=== PATIENT | male | born 1930 | race Caucasian/White ===

== ENCOUNTER 2016-07-15 11:00 | Day surgery (SDC) | payer OTHER ==
[~2016-07-15] VITALS: Ht 175.3 cm; Wt 158.7 kg
[2016-07-15] VITALS (11 sets, daily range): BP systolic 108–174; BP diastolic 57–108; PULSE 71–80; RESP 18; TEMP 97.7–98.8; O2SAT 95–100
[~2016-07-15 11:00] MED LIST: 1-ME1LIQ PO; ASPI325T PO; B COTAB3 PO; BP MED; CARV6.252 PO; CLON.1 PO; FURO1TAB93 PO; GLUC250C5 PO; LISI-363 PO; LORTA5 PO; MAXIVISION PO; MEDR4PAK3 PO; METF1000 PO; NOVO7030P2 SQ; SIMV20TA PO; TERA5CAP3 PO; WARF-20 PO; WARF1TAB PO; [UNRECOGNIZED DRUG - CODE] PO
[2016-07-15] MEDS ORDERED: LACTATED RINGER'S 1000 ML IV SCH (11:30)
[2016-07-15] MEDS ORDERED: LORazepam 1 MG TAB SL SCH (11:30)
[2016-07-15] MEDS ORDERED: METOPROLOL TARTRATE 25 MG TAB PO PRN (11:30)
[2016-07-15] MEDS ORDERED: INSULIN HUMAN REGULAR 1,000 UNITS/10 ML VIAL SQ PRN (11:30)
[2016-07-15] MEDS ORDERED: SODIUM CHLORID 0.9% 500 ML IV SCH (11:30)
[2016-07-15] MEDS ORDERED: SODIUM CHLORID 0.9% 500 ML INJ 500 ML IV SCH (11:30)
[2016-07-15] MEDS ORDERED: ZOCO20TA PO (12:21)
[2016-07-15] MEDS ORDERED: MAGN400T2 PO (12:21)
[2016-07-15] MEDS ORDERED: NORC5TAB PO (12:21)
[2016-07-15] MEDS ORDERED: AMOX500C PO (12:21)
[2016-07-15] MEDS ORDERED: CARV25TA PO (12:21)
[2016-07-15] MEDS ORDERED: BENGCRE (12:21)
[2016-07-15] MEDS ORDERED: METF1000 PO (12:21)
[2016-07-15] MEDS ORDERED: TAMS0.4C4 PO (12:21)
[2016-07-15] MEDS ORDERED: SPIR25 PO (12:21)
[2016-07-15] MEDS ORDERED: METO5TAB3 PO (12:21)
[2016-07-15] MEDS ORDERED: WARF4TAB51 PO ×2 (12:21)
[2016-07-15] MEDS ORDERED: NOVO7030P2 SQ (12:21)
[2016-07-15] MEDS ORDERED: MULT1TAB84 PO (12:21)
[2016-07-15] MEDS ORDERED: BENZ1CAP8 PO (12:21)
[2016-07-15] MEDS ORDERED: ALLO300T2 PO (12:21)
[2016-07-15] MEDS ORDERED: BUME1TAB PO (12:21)
[2016-07-15] MEDS ORDERED: SACU1TAB PO (12:21)
[2016-07-15] MEDS ORDERED: OMEGCAP PO (12:21)
[2016-07-15] MEDS ORDERED: [UNRECOGNIZED DRUG - CODE] PO (12:21)
[2016-07-15 12:22] LABS: AUTOMATED NEUTROPHIL # 5.5 TH/MM3 (1.8-7.7); BASOPHIL # 0.1 TH/MM3 (0-0.2); BASOPHIL % 0.6 % (0.0-2.0); EOSINOPHIL # 0.1 TH/MM3 (0-0.4); EOSINOPHIL % 1.4 % (0.0-4.0); HEMATOCRIT 44.8 % (39.0-51.0); HEMO FLAGS DIFF FINAL; LYMPH % 27.5 % (9.0-44.0); LYMPHOCYTE # 2.4 TH/MM3 (1.0-4.8); MEAN CELL VOLUME 84.3 FL (80.0-100.0); MEAN CORPUSCULAR HEMOGLOBIN 28.2 PG (27.0-34.0); MEAN CORPUSCULAR HGB CONC 33.5 % (32.0-36.0); MONO % 8.2 % (0.0-8.0); NEUT % 62.3 % (16.0-70.0); PLATELET COUNT 135 TH/MM3 (150-450); RED BLOOD COUNT 5.31 MIL/MM3 (4.50-5.90); RED CELL DISTRIBUTION WIDTH 18.8 % (11.6-17.2); WHITE BLOOD COUNT 8.9 TH/MM3 (4.0-11.0)
[2016-07-15 12:26] LABS: APTT (PATIENT) 35.7 SEC (24.3-30.1)
[2016-07-15 12:51] LABS: BICARBONATE 25.9 MEQ/L (21.0-32.0); POTASSIUM 4.3 MEQ/L (3.5-5.1)
[2016-07-15 13:02] LABS: INTERNATIONAL NORMALIZED RATIO 2.3 RATIO; PROTHROMBIN TIME - PATIENT 26.5 SEC (9.8-11.6)
[2016-07-15] MEDS ORDERED: ISOPROTERENOL HCL 1 MG/5 ML AMP ONE (13:05)
[2016-07-15] MEDS ORDERED: ceFAZolin INJ 1,000 MG VIAL ONE (13:06)
[2016-07-15] MEDS ORDERED: VANCOMYCIN HCL 1000 MG VIAL ONE (13:06)
[2016-07-15] MEDS ORDERED: LIDOCAINE HCL 2% 50 ML VIAL ONE (14:10)
[2016-07-15] MEDS ORDERED: VANCOMYCIN 500 MG VIAL ONE (14:10)
[2016-07-15] MEDS ORDERED: ePHEDrine/NS 25 MG/5 ML SYR IV ONE (15:24)
[2016-07-15] MEDS ORDERED: PROPOFOL 200 MG/20 ML AMP IV ONE (15:24)
[2016-07-15] MEDS ORDERED: SODIUM CHLOR 0.9% IV ONE (15:24)
[2016-07-15] MEDS ORDERED: SODIUM CHLORIDE 0.9% FLUSH 5 ML FLUSH IVF PRN (15:45)
[2016-07-15] MEDS ORDERED: LIDOCAINE HCL 1% 50 ML VIAL INFIL PRN (15:45)
[2016-07-15] MEDS ORDERED: ATROPINE SULFATE 1 MG/ML VIAL IV PRN (15:45)
[2016-07-15] MEDS ORDERED: LORazepam 2 MG/ML VIAL IV PRN (15:45)
[2016-07-15] MEDS ORDERED: oxyCODONE/ACETAMINOPHEN 5 MG/325 MG TAB PO PRN (15:45)
[2016-07-15] MEDS ORDERED: SODIUM CHLOR 0.9% 250 ML INJ 250 ML IV PRN (15:45)
[2016-07-15] MEDS ORDERED: METOCLOPRAMIDE HCL 10 MG/2 ML VIAL IV PRN (15:45)
[2016-07-15] MEDS ORDERED: ONDANSETRON HCL 4 MG/2 ML VIAL IV PRN ×2 (15:45)
[2016-07-15] MEDS ORDERED: BACITRACIN OINT 0.9 GM PKT TOP ONE (15:45)
[2016-07-15] MEDS ORDERED: TEMAZEPAM 15 MG CAP PO PRN (15:45)
[2016-07-15] MEDS ORDERED: BENZONATATE 100 MG CAP PO PRN (16:00)
[2016-07-15] MEDS: metFORMIN HCL 500 MG TAB PO SCH (17:25)
[2016-07-15] MEDS: MAGNESIUM OXIDE 400 MG TAB PO SCH (17:25)
--- NOTE | 2016-07-15 20:27 | PD.CARD ---
BIV/ICD Implantation PROCEDURE DATE: Jul 15, 2016 NYHA Classification: Class III (Moderate) Prevention: Primary BIV/ICD IMPLANT PROCEDURE Biventricular pacer defibrillator implantation. INDICATION FOR PROCEDURE Mr. Rosas is a 85-year-old male with congestive heart failure, cardiomyopathy, on optimal medical management for years, atrial fibrillation, EF 30%, SP AV node ablation, wide QRS at baseline who undergo biventricular pacer defibrillator implantation. Post electrophysiology study the patient was kept on the table for device implantation. The risks, the nature and the benefit of the procedure were clearly stated to him. The risks include pneumothorax, cardiac perforation, stroke and even . He understood and agreed to proceed. PROCEDURE As written informed consent was obtained prior to electrophysiology study, the patient was kept on the table where he was prepped and draped in the usual sterile fashion. Conscious sedation was initiated and maintained throughout the procedure by the anesthesiologist. Once sedation was verified, the left infraclavicular area was anesthetized with 2% Xylocaine. Using modified Seldinger technique, the left subclavian vein was cannulated on two occasions and two guidewire were advanced. Then, using an 11 blade scalpel, a 3 cm incision was made over the existing generator. The incision was taken down to the fascial layer using Bovie cautery and blunt dissection. Into the inferomedial direction, a device pocket was dissected. Then the wires were dissected into pocket. A 2-0 Vicryl suture was placed around the wires to prevent back-bleeding. At this point, over the lateral wire, a 8-Portuguese dilator and introducer were advanced. As the dilator and wire were removed, an active fixation right ventricular pacing sensing defibrillatory lead was advanced. After adequate pacing and sensing thresholds were obtained, the lead was secured in the pocket using # 2 Ethibond suture. Then, over the remaining wire, a 9-Portuguese dilator and introducer were advanced. As the dilator and wire were removed, a CS cannulation sheath was advanced. Through the sheath a quadripolar steerable catheter was advanced. After multiple manipulations the coronary sinus was cannulated, and CS venography showed an adequate lateral branch. Using a Prowater wire the lateral branch was cannulated and the lead was advanced over the wire. After adequate pacing and sensing thresholds were obtained, the peel-away introducer was removed and the cutter introducer was removed, and the lead was secured in the pocket using # 2 Ethibond suture. At that point, the pocket was copiously irrigated with antibiotic solution. The leads were connected to the generator and placed into pocket. Because of the patient's general condition and was so unstable during the procedure, I decided not to proceed with device testing. I did proceed with wound closure. The deep fascial layer was approximated using 2-0 Vicryl suture in a continuous fashion. The subcutaneous layer was approximated with 2-0 Vicryl suture in a continuous fashion. The subcuticular layer was approximated with 2-0 Vicryl suture in a continuous fashion. Dermabond adhesive was applied to the wound followed by a sterile pressure dressing. This was a very complex case. The patient was unstable during the procedure, but no complications reported. Blood loss was minimal. IMPLANTED HARDWARE The implanted biventricular pacer defibrillator is a [employer]ronik model 221801, serial number [id number]. The right ventricle pacing sensing defibrillatory is a Biotronik model 458359, serial number [id number]. The left ventricular pacing sensing lead is a [employer] model 4398-88, serial number [id number]. THRESHOLDS The right ventricle pacing threshold in the bipolar mode was 0.8 volts at 0.5 milliseconds, lead impedance 680 ohms. The left ventricular pacing threshold in the bipolar mode was 1.2 volts at 0.5 milliseconds, lead impedance 520 ohms, R wave could not be measured. SETTINGS The device was set in a VVIR 80, upper limit 110 beats per minute. LV first by 40 milliseconds. The defibrillatory portion was set for two zones. One zone for ventricular tachycardia between 160 and 240 beats per minute on the monitor ventricular tachycardia. The initial therapy consisted of one burst of ATP, one RAMP, 81%, 10 pulses, 10 millisecond decremental followed by 20, 30 and 40 joules defibrillatory shock. The second zone is for ventricle fibrillation above 240, the first therapy at 30 and all subsequent shocks at 40 joules defibrillatory shock. CONCLUSIONS Successful biventricular pacer defibrillator implantation, that was a complex case. COMMENT AND RECOMMENDATION The patient will be transferred to the telemetry unit. He will be observed and when stable can be discharged home. Elmer Torres MD Jul 15, 2016 20:27
[2016-07-15] MEDS ORDERED: AMOXICILLIN (TRIHYDRATE) 500 MG CAP PO SCH (21:00)
[2016-07-15] MEDS ORDERED: PRAVASTATIN SOD 40 MG TAB PO SCH (21:00)
[2016-07-15] MEDS: SODIUM CHLORIDE 0.9% FLUSH 5 ML FLUSH IVF SCH (21:00)
[2016-07-15] MEDS ORDERED: NON-FORMULARY DRUG (Simvastatin (Zocor) 20 MG) PO SCH (21:00)
[2016-07-15] MEDS ORDERED: TAMSULOSIN HCL 0.4 MG CAP PO SCH (21:00)
[2016-07-15] MEDS: BUMETANIDE 1 MG TAB PO SCH (21:02)
[2016-07-15] MEDS: ceFAZolin 2 GM PREMIX 50 ML IV SCH (21:04)
[2016-07-15] MEDS: CARVEDILOL 12.5 MG TAB PO SCH (21:04)
[2016-07-15] MEDS: oxyCODONE/ACETAMINOPHEN 5 MG/325 MG TAB PO PRN (21:05)
[2016-07-15] MEDS: SACUBITRIL/VALSARTAN 24 MG-26 MG TAB PO SCH (21:51)
[2016-07-16] VITALS (16 sets, daily range): BP systolic 134–171; BP diastolic 77–94; PULSE 78–80; RESP 18; TEMP 97.8–98.3; O2SAT 93–98
[2016-07-16] MEDS: oxyCODONE/ACETAMINOPHEN 5 MG/325 MG TAB PO PRN (03:54)
[2016-07-16] MEDS: ceFAZolin 2 GM PREMIX 50 ML IV SCH (05:29)
[2016-07-16 07:04] LABS: APTT (PATIENT) 36.3 SEC (24.3-30.1); INTERNATIONAL NORMALIZED RATIO 2.5 RATIO; PROTHROMBIN TIME - PATIENT 28.3 SEC (9.8-11.6)
[2016-07-16] MEDS ORDERED: CEPH-460 PO (08:01)
--- NOTE | 2016-07-16 08:08 | PD.CARD.PN ---
Subjective Subjective Remarks Feels ok. Objective Medications Current Medications Medications (Trade) Dose Ordered Sig/Gerardo Route Start Time Stop Time Status Last Admin Sodium Chloride 500 ml @ 30 mls/hr [id number] IV 07/15/16 11:30 (Ancef 2 Gm Premix) 50 ml @ 100 mls/hr Q8H IV 07/15/16 21:00 07/16/16 13:29 07/16/16 05:29 (Restoril) 15 mg HS PRN PO 07/15/16 15:45 (NS Flush) 2 ml BID IVF 07/15/16 21:00 07/15/16 21:00 (NS Flush) 2 ml UNSCH PRN IVF 07/15/16 15:45 (Percocet 5-325 Mg) 1 tab Q4H PRN PO 07/15/16 15:45 07/16/16 03:54 (Percocet 5-325 Mg) 2 tab Q4H PRN PO 07/15/16 15:45 (Ativan Inj) 0.5 mg UNSCH PRN IV 07/15/16 15:45 07/16/16 15:44 Atropine Sulfate 0.5 mg 0.5 mg UNSCH PRN IV 07/15/16 15:45 (NS 250 ml Inj) 250 ml @ 500 mls/hr ONCE PRN IV 07/15/16 15:45 07/16/16 15:44 (Reglan Inj) 10 mg Q4H PRN IV 07/15/16 15:45 (Zofran Inj) 4 mg Q4H PRN IV 07/15/16 15:45 (Xylocaine 1% Inj (50 ml)) 10 ml UNSCH PRN INFIL 07/15/16 15:45 07/16/16 15:44 (Zyloprim) 300 mg DAILY PO 07/16/16 09:00 (Trimox) 2,000 mg BID PO 07/15/16 21:00 UNV (Tessalon) 100 mg Q6H PRN PO 07/15/16 16:00 (Bumetanide) 1 mg BID PO 07/15/16 21:00 07/15/16 21:02 (Coreg) 25 mg BID PO 07/15/16 21:00 07/15/16 21:04 (NovoLIN 70/30 INJ) 55 units DAILY SQ 07/16/16 09:00 (Mag-Ox) 400 mg TID PO 07/15/16 18:00 07/15/16 17:25 (Glucophage) 1,000 mg BIDPC PO 07/15/16 18:00 07/15/16 17:25 (Zaroxolyn) 5 mg DAILY PO 07/16/16 09:00 (Theragran M Tab) 1 tab DAILY PO 07/16/16 09:00 (Entresto 24-26 Mg) 1 tab BID PO 07/15/16 21:00 07/15/16 21:51 (Aldactone) 25 mg DAILY PO 07/16/16 09:00 (Flomax) 0.4 mg HS PO 07/15/16 21:00 07/15/16 21:02 (Coumadin) 8 mg SuTuTh@16 PO 07/18/16 16:00 (Coumadin) 10 mg MoWeFrSa@16 PO 07/16/16 16:00 (Pravachol) 40 mg HS PO 07/15/16 21:00 07/15/16 21:02 (Coumadin Booklet) 1 ONCE ONCE XX 07/16/16 16:00 07/16/16 16:01 Vital Signs / I&O Vital Signs Date Time Temp Pulse Resp B/P Pulse Ox O2 Delivery O2 Flow Rate FiO2 07/16/16 06:00 80 07/16/16 05:00 80 07/16/16 04:00 80 07/16/16 03:57 97.8 80 154/83 98 07/16/16 03:00 80 07/16/16 02:00 80 07/16/16 01:00 80 07/16/16 00:02 97.8 78 134/77 96 07/16/16 00:00 80 07/15/16 23:00 80 07/15/16 22:00 80 07/15/16 21:00 80 07/15/16 20:00 80 07/15/16 19:00 97.7 80 108/108 99 07/15/16 19:00 80 07/15/16 17:35 98.8 80 18 134/78 100 07/15/16 17:00 79 131/75 99 07/15/16 16:45 71 114/81 99 07/15/16 16:30 80 18 174/57 96 07/15/16 16:00 78 18 146/64 99 07/15/16 11:48 98.4 72 18 138/85 95 I/O 07/15/16 07/15/16 07/15/16 07/16/16 07/16/16 07/16/16 07:00 15:00 23:00 07:00 15:00 23:00 Intake Total 480 ml Output Total 650 ml Balance -170 ml Intake Oral 480 ml Output Urine Total 650 ml # Voids 1 Physical Exam GENERAL: Well-nourished, well-developed patient. SKIN: Warm and dry. LCW well approximated without hematoma or bleeding. HEAD: Normocephalic. EYES: No scleral icterus. No injection or drainage. NECK: Supple, trachea midline. No JVD or lymphadenopathy. CARDIOVASCULAR: Regular rate and rhythm without murmurs, gallops, or rubs. RESPIRATORY: Breath sounds equal bilaterally. No accessory muscle use. GASTROINTESTINAL: Abdomen soft, non-tender, nondistended. EXTREMITIES: No cyanosis, 1+ edema. NEUROLOGICAL: Awake, alert, and oriented x 3. Non-focal. Laboratory Laboratory Tests Test 07/15/16 07/16/16 11:30 06:20 White Blood Count 8.9 TH/MM3 Red Blood Count 5.31 MIL/MM3 Hemoglobin 15.0 GM/DL Hematocrit 44.8 % Mean Corpuscular Volume 84.3 FL Mean Corpuscular Hemoglobin 28.2 PG Mean Corpuscular Hemoglobin 33.5 % Concent Red Cell Distribution Width 18.8 % Platelet Count 135 TH/MM3 Mean Platelet Volume 8.2 FL Neutrophils (%) (Auto) 62.3 % Lymphocytes (%) (Auto) 27.5 % Monocytes (%) (Auto) 8.2 % Eosinophils (%) (Auto) 1.4 % Basophils (%) (Auto) 0.6 % Neutrophils # (Auto) 5.5 TH/MM3 Lymphocytes # (Auto) 2.4 TH/MM3 Monocytes # (Auto) 0.7 TH/MM3 Eosinophils # (Auto) 0.1 TH/MM3 Basophils # (Auto) 0.1 TH/MM3 CBC Comment DIFF FINAL Differential Comment Prothrombin Time 26.5 SEC 28.3 SEC Prothromb Time International 2.3 RATIO 2.5 RATIO Ratio Activated Partial 35.7 SEC 36.3 SEC Thromboplast Time Sodium Level 136 MEQ/L Potassium Level 4.3 MEQ/L Chloride Level 102 MEQ/L Carbon Dioxide Level 25.9 MEQ/L Anion Gap 8 MEQ/L Blood Urea Nitrogen 32 MG/DL Creatinine 1.31 MG/DL Estimat Glomerular Filtration 52 ML/MIN Rate Random Glucose 111 MG/DL Calcium Level 9.2 MG/DL Blood Type A POSITIVE Antibody Screen NEGATIVE Blood Bank Comment Assessment and Plan Problem List: (1) Cardiomyopathy Assessment and Plan: No SOB this a.m. Stable s/p upgrade to BiVICD. (2) Biventricular implantable cardioverter-defibrillator (ICD) in situ Assessment and Plan: Pacing appropriately, interrogation good, CXR pending. If CXR ok, he can be DC'D home and f/u with Dr. Torres in 3 weeks. Assessment and Plan D/W pt., , RN, Dr. Torres. Problem Qualifiers (1) Cardiomyopathy: Qualified Code: I42.9 - Cardiomyopathy, unspecified type Ingris Burger Jul 16, 2016 08:08
[2016-07-16] MEDS ORDERED: SPIRONOLACTONE 25 MG TAB PO SCH (09:00)
[2016-07-16] MEDS: SODIUM CHLORIDE 0.9% FLUSH 5 ML FLUSH IVF SCH (09:00)
[2016-07-16] MEDS ORDERED: METOLAZONE 5 MG TAB PO SCH (09:00)
[2016-07-16] MEDS ORDERED: ALLOPURINOL 300 MG TAB PO SCH (09:00)
[2016-07-16] MEDS ORDERED: INSULIN HUMAN NPH/R 70/30 1,000 UNITS/10 ML VIAL SQ SCH (09:00)
[2016-07-16] MEDS ORDERED: MULTIVITAMINS/MINERALS THERAPEUTIC TAB PO SCH (09:00)
[2016-07-16] MEDS: BUMETANIDE 1 MG TAB PO SCH (10:43)
[2016-07-16] MEDS: CARVEDILOL 12.5 MG TAB PO SCH (10:44)
[2016-07-16] MEDS: metFORMIN HCL 500 MG TAB PO SCH (10:44)
[2016-07-16] MEDS: MAGNESIUM OXIDE 400 MG TAB PO SCH (10:44)
[2016-07-16] MEDS: SACUBITRIL/VALSARTAN 24 MG-26 MG TAB PO SCH (10:44)
--- NOTE | 2016-07-16 10:50 | RADRPT ---
EXAM DATE/TIME: 07/16/2016 10:12 [place] COMPARISON: CHEST PA & LAT, May 14, 2013, 20:50. INDICATIONS: Post pacemaker yesterday. MEDICAL HISTORY: None. SURGICAL HISTORY: Pacemaker. ENCOUNTER: Initial ACUITY: 2 days PAIN SCORE: 0/10 LOCATION: Bilateral chest FINDINGS: The heart is enlarged. Minimal pulmonary vascular congestion is noted. a left subclavian dual lead pacemaker has its tip in the right heart. There is no pneumothorax. No focal alveolar consolidation is noted. CONCLUSION: 1. Cardiomegaly. 2. Minimal central pulmonary vascular congestion bilaterally. 3. Left subclavian dual lead pacemaker has its tip in good position in the right heart. There is no pneumothorax. Nando Dyer MD on July 16, 2016 at 10:34 Board Certified Radiologist. This report was verified electronically.
[2016-07-16] MEDS ORDERED: WARFARIN SOD 10 MG TAB PO SCH (16:00)
--- NOTE | 2016-07-16 16:49 | EKG ---
Date Performed: 07/16/2016 Time Performed: 03:46:06 PTAGE: 85 years EKG: Ventricular pacing Pacemaker rhythm - no further analysis When compared to previous tracing , patient is now in a Ventricular paced rhythm. Abnormal ECG PREVIOUS TRACING : 07/15/2016 12.33 DOCTOR: Asher Kim Interpretating Date/Time 07/16/2016 16:48:52
--- NOTE | 2016-07-16 16:49 | EKG ---
Date Performed: 07/15/2016 Time Performed: 12:33:28 PTAGE: 85 years EKG: Atrial fibrillation. Left axis deviation IV conduction defect Possible lateral infarct - ag e undetermined Poor R wave progression - cannot rule out anteroseptal infarct When compared to previo us tracing, no significant change. Abnormal ECG PREVIOUS TRACING : 05/14/2013 20.19 DOCTOR: Asher Kim Interpretating Date/Time 07/16/2016 16:48:01
[2016-07-18] MEDS ORDERED: WARFARIN SOD 4 MG TAB PO SCH (16:00)
== END 2016-07-16 12:48 | disposition home or self-care (01) ==
LOC: HDOC 11:00 → HDIC 11:00 → HCIS 16:19 → HDOC 07-16 12:48
PROVIDERS: ATTEND Internal Medicine Interventional Cardiology
DX: I48.2 Chronic atrial fibrillation (principal); I13.0 Hypertensive heart and chronic kidney disease with heart failure and stage 1 through stage 4 chronic kidney disease, or unspecified chronic kidney disease; I50.9 Heart failure, unspecified; E11.22 Type 2 diabetes mellitus with diabetic chronic kidney disease; N18.2 Chronic kidney disease, stage 2 (mild); I42.0 Dilated cardiomyopathy; I08.3 Combined rheumatic disorders of mitral, aortic and tricuspid valves; I44.7 Left bundle-branch block, unspecified; I87.2 Venous insufficiency (chronic) (peripheral); R60.9 Edema, unspecified; E66.01 Morbid (severe) obesity due to excess calories; Z68.43 Body mass index [BMI] 50.0-59.9, adult; G47.30 Sleep apnea, unspecified; R53.83 Other fatigue; R06.09 Other forms of dyspnea; Z91.81 History of falling
CPT/HCPCS: 33249; 71020; 80048; 82948; 85025; 85610; 85730; 86850; 86900; 86901; 93005; 93613; 93620; 93623; 93650; C1730; C1732; C1769; C1882; C1895; C1900; C2630; J0690; J1815; J3370; J7050; 33225; C1777

== ENCOUNTER 2016-11-18 14:28 | Inpatient (IN) | payer OTHER, MEDICARE ==
[2016-11-18] VITALS (12 sets, daily range): BP systolic 77–150; BP diastolic 46–75; PULSE 79–84; RESP 16–20; TEMP 98.8–98.9; O2SAT 93–97
[~2016-11-18] VITALS: Ht 172.7 cm; Wt 116.4 kg
[~2016-11-18 14:28] MED LIST changes: -1-ME1LIQ PO; +ALLO300T2 PO; -ASPI325T PO; -B COTAB3 PO; +BENGCRE; +BENZ1CAP8 PO; -BP MED; +BUME1TAB PO; +CARV25TA PO; -CARV6.252 PO; +CEPH-460 PO; -CLON.1 PO; -FURO1TAB93 PO; -GLUC250C5 PO; -LISI-363 PO; -LORTA5 PO; +MAGN400T2 PO; -MAXIVISION PO; -MEDR4PAK3 PO; +METO5TAB3 PO; +MULT1TAB84 PO; +NORC5TAB PO; +OMEGCAP PO; +SACU1TAB PO; -SIMV20TA PO; +SPIR25 PO; +TAMS0.4C4 PO; -TERA5CAP3 PO; -WARF-20 PO; -WARF1TAB PO; +WARF4TAB51 PO; +ZOCO20TA PO; +[UNRECOGNIZED DRUG - CODE] PO; -[UNRECOGNIZED DRUG - CODE] PO
[2016-11-18] MEDS ORDERED: PANTOPRAZOLE INJ 80 MG in SODIUM CHLORIDE 0.9% INJ 35 ML IV ONE (15:15)
[2016-11-18] MEDS ORDERED: ONDANSETRON HCL 4 MG/2 ML VIAL IVP ONE (15:15)
[2016-11-18] MEDS ORDERED: SODIUM CHLORIDE 0.9% FLUSH 10 ML FLUSH IVF PRN (15:15)
[2016-11-18] MEDS ORDERED: SACU1TAB4 PO (15:32)
[2016-11-18] MEDS ORDERED: MENT1CRE (15:32)
--- NOTE | 2016-11-18 16:01 | PD ---
HPI Chief Complaint: General Weakness Time Seen by Provider: 15:02 Travel History International Travel<30 days: No Contact w/Intl Traveler<30days: No Traveled to known affect area: No History of Present Illness HPI Patient is an 86-year-old male who comes in due to generalized weakness. He says he has been feeling unwell for the past 3 days. He reports several episodes of vomiting 2 days ago, but his vomitus was brown in color. He has not been able to eat since then. He does report some diarrhea, which she says is light in color. He says he has some upper abdominal pain. He says the pain does go up into his chest as well. He denies shortness of breath. He generally feels weak all over. His reports that it seems that the left side of his face is drooping a little bit more than normal. She also reports some slurring of his words. This is been going on for the past 2 days. He has not had fever or chills. He did just increase his CHF medication. PFSH Past Medical History Hx Anticoagulant Therapy: Yes (coumadin) Atrial Fibrillation: Yes Heart Rhythm Problems: Yes Cancer: No Cardiomyopathy: Yes Cardiovascular Problems: Yes (CHF,LBBB, MITRAL REGURG, ) High Cholesterol: Yes Chest Pain: Yes Congestive Heart Failure: Yes Coronary Artery Disease: Yes Diabetes: Yes (TYPE II) Patient Takes Glucophage: Yes Diminished Hearing: Yes Gastrointestinal Disorders: No Glaucoma: No Hepatitis: No Hiatal Hernia: No Hypertension: Yes Respiratory: Yes (SLEEP APNEA) Integumentary: No Myocardial Infarction: Yes Thyroid Disease: No Influenza Vaccination: Yes Past Surgical History Pacemaker: Yes Social History Alcohol Use: No Tobacco Use: No Substance Use: No Allergies-Medications (Allergen,Severity, Reaction): Coded Allergies: Morphine (Verified Allergy, Severe, CONFUSION, 11/18/16) Reported Meds & Prescriptions Reported Meds & Active Scripts Active Reported Goodsense Muscle Rub Topical (Menthol-Methyl Salicylate Topical) 8-30 % Cream Warfarin 2 Mg Tab 8 Mg PO DAILY tths Warfarin 2 Mg Tab 10 Mg PO DAILY m,w,f,sat Novolin 70-30 Inj (Insulin Human Isoph/Insulin Regular) 1,000 Unit/10 Ml Vial 55 Units SQ DIRECTED Metolazone 5 Mg Tab 5 Mg PO DAILY Metformin (Metformin HCl) 1,000 Mg Tab 1,000 Mg PO BIDPC With meals [place] (Hydrocodone-Acetaminophen) 5-325 mg Tab 1 Tab PO Q6H PRN [place]-3 Fish Oil/Vitamin (Fish Oil-Cholecalciferol) 1,000-1,000 Mg Cap 1 Cap PO DAILY Carvedilol 25 Mg Tab 12.5 Mg PO BID Bumetanide 1 Mg Tab 1 Mg PO BID Aldactone (Spironolactone) 25 Mg Tab 25 Mg PO DAILY Review of Systems Except as stated in HPI: all other systems reviewed are Neg General / Constitutional: No: Fever, Chills Eyes: No: Blurred Vision HENT: No: Headaches, Lightheadedness Cardiovascular: Positive: Chest Pain or Discomfort Respiratory: No: Shortness of Breath Gastrointestinal: Positive: Nausea, Vomiting, Diarrhea, Abdominal Pain Musculoskeletal: No: Edema, Pain Skin: Positive Change in Pigmentation, No Rash Neurologic: Positive: Weakness Physical Exam Narrative GENERAL: Awake and alert, in no acute distress. SKIN: Focused skin assessment warm/dry. Slight jaundice in appearance. HEAD: Atraumatic. Normocephalic. EYES: Pupils equal and round. No scleral icterus. Extraocular movements intact. ENT: Mucous membranes pink and moist. NECK: Trachea midline. No JVD. CARDIOVASCULAR: Regular rate and rhythm. No murmur appreciated. RESPIRATORY: No accessory muscle use. Clear to auscultation. Breath sounds equal bilaterally. GASTROINTESTINAL: Abdomen soft, nondistended. Diffuse tenderness to palpation. No rebound or guarding. MUSCULOSKELETAL: No obvious deformities. No clubbing. No cyanosis. No edema. NEUROLOGICAL: Awake and alert. Mild left-sided facial droop. Motor grossly within normal limits. Normal speech. 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 PSYCHIATRIC: Appropriate mood and affect; insight and judgment normal. Data Data Last Documented VS Vital Signs Date Time Temp Pulse Resp B/P Pulse Ox O2 Delivery O2 Flow Rate FiO2 11/18/16 18:04 80 16 116/64 96 Room Air 11/18/16 14:33 98.9 Orders Complete Blood Count With Diff (11/18/16 15:15) Comprehensive Metabolic Panel (11/18/16 15:15) Prothrombin Time / Inr (Pt) (11/18/16 15:15) Act Partial Throm Time (Ptt) (11/18/16 15:15) Urinalysis - C+S If Indicated (11/18/16 15:15) Ua Includes Microscopic (11/18/16 15:15) Type And Screen (11/18/16 15:15) Chest, Single Ap (11/18/16 15:15) Ecg Monitoring (11/18/16 15:15) Iv Access Insert/Monitor (11/18/16 15:15) Oximetry (11/18/16 15:15) Ondansetron Inj (Zofran Inj) (11/18/16 15:15) Sodium Chloride 0.9% Flush (Ns Flush) (11/18/16 15:15) Pantoprazole Inj (Protonix Inj) (11/18/16 15:15) Pantoprazole Inj (Protonix Inj) (11/18/16 15:15) Troponin I (11/18/16 15:15) Electrocardiogram (11/18/16 ) Ct Brain W/O Iv Contrast(Rout) (11/18/16 ) Sodium Chlor 0.9% 1000 Ml Inj (Ns 1000 M (11/18/16 16:30) B-Type Natriuretic Peptide (11/18/16 16:18) Ct Abd/Pel W/O Iv Contrast (11/18/16 ) Admit Order (Ed Use Only) (11/18/16 18:24) Labs Laboratory Tests Test 11/18/16 15:50 White Blood Count 8.6 TH/MM3 Red Blood Count 4.74 MIL/MM3 Hemoglobin 14.0 GM/DL Hematocrit 42.7 % Mean Corpuscular Volume 90.1 FL Mean Corpuscular Hemoglobin 29.5 PG Mean Corpuscular Hemoglobin 32.7 % Concent Red Cell Distribution Width 16.1 % Platelet Count 132 TH/MM3 Mean Platelet Volume 9.1 FL Neutrophils (%) (Auto) 76.7 % Lymphocytes (%) (Auto) 15.0 % Monocytes (%) (Auto) 7.9 % Eosinophils (%) (Auto) 0.2 % Basophils (%) (Auto) 0.2 % Neutrophils # (Auto) 6.6 TH/MM3 Lymphocytes # (Auto) 1.3 TH/MM3 Monocytes # (Auto) 0.7 TH/MM3 Eosinophils # (Auto) 0.0 TH/MM3 Basophils # (Auto) 0.0 TH/MM3 CBC Comment DIFF FINAL Differential Comment Prothrombin Time 39.6 SEC Prothromb Time International 3.4 RATIO Ratio Activated Partial 33.6 SEC Thromboplast Time Sodium Level 136 MEQ/L Potassium Level 4.8 MEQ/L Chloride Level 99 MEQ/L Carbon Dioxide Level 28.3 MEQ/L Anion Gap 9 MEQ/L Blood Urea Nitrogen 36 MG/DL Creatinine 1.90 MG/DL Estimat Glomerular Filtration 34 ML/MIN Rate Random Glucose 140 MG/DL Calcium Level 8.5 MG/DL Total Bilirubin 4.3 MG/DL Aspartate Amino Transf 158 U/L (AST/SGOT) Alanine Aminotransferase 271 U/L (ALT/SGPT) Alkaline Phosphatase 120 U/L Troponin I 0.05 NG/ML B-Type Natriuretic Peptide 77 PG/ML Total Protein 6.5 GM/DL Albumin 2.7 GM/DL Blood Type A POSITIVE Antibody Screen NEGATIVE MDM Medical Decision Making Medical Screen Exam Complete: Yes Emergency Medical Condition: Yes Medical Record Reviewed: Yes Interpretation(s) ECG shows a paced rhythm Differential Diagnosis GI bleed versus ACS versus sepsis Narrative Course Patient is an 86-year-old male comes in complaining of generalized weakness. Rectal exam shows brown stool that is positive for blood. Exam shows that he has diffuse abdominal pain. IV established, labs sent. Patient started on Protonix. He is on Coumadin likely need reversal, depending on what his INR is. CT abdomen and pelvis as well as CT head ordered. Chest x-ray ordered to check for free air. Patient signed out to Dr. Esquivel to follow up testing and disposition the patient. Scripts Pantoprazole 40 Mg Tab40 Mg PO DAILY #14 TAB Prov:Christine Posey MD 11/20/16 Kezia Herrera MD Nov 18, 2016 16:01
[2016-11-18 16:15] LABS: AUTOMATED NEUTROPHIL # 6.6 TH/MM3 (1.8-7.7); BASOPHIL % 0.2 % (0.0-2.0); EOSINOPHIL % 0.2 % (0.0-4.0); HEMATOCRIT 42.7 % (39.0-51.0); HEMO FLAGS DIFF FINAL; LYMPHOCYTE # 1.3 TH/MM3 (1.0-4.8); MEAN CELL VOLUME 90.1 FL (80.0-100.0); MEAN CORPUSCULAR HEMOGLOBIN 29.5 PG (27.0-34.0); MEAN CORPUSCULAR HGB CONC 32.7 % (32.0-36.0); MONO % 7.9 % (0.0-8.0); NEUT % 76.7 % (16.0-70.0); PLATELET COUNT 132 TH/MM3 (150-450); RED BLOOD COUNT 4.74 MIL/MM3 (4.50-5.90); RED CELL DISTRIBUTION WIDTH 16.1 % (11.6-17.2); WHITE BLOOD COUNT 8.6 TH/MM3 (4.0-11.0)
[2016-11-18] MEDS: PANTOPRAZOLE INJ 80 MG in SODIUM CHLORIDE 0.9% INJ 100 ML IV SCH (16:18)
[2016-11-18 16:24] LABS: CHLORIDE 99 MEQ/L (98-107); POTASSIUM 4.8 MEQ/L (3.5-5.1); SODIUM (NA) 136 MEQ/L (136-145)
[2016-11-18 16:29] LABS: ANION GAP 9 MEQ/L (5-15); BICARBONATE 28.3 MEQ/L (21.0-32.0); BLOOD UREA NITROGEN 36 MG/DL (7-18)
[2016-11-18] MEDS ORDERED: SODIUM CHLOR 0.9% 1000 ML INJ 1,000 ML IV SCH (16:30)
[2016-11-18 16:32] LABS: ALT (GPT) 271 U/L (12-78); APTT (PATIENT) 33.6 SEC (24.3-30.1); AST (GOT) 158 U/L (15-37); GLOMERULAR FILTRATION RATE 34 ML/MIN (>89); INTERNATIONAL NORMALIZED RATIO 3.4 RATIO; PROTHROMBIN TIME - PATIENT 39.6 SEC (9.8-11.6)
[2016-11-18 16:33] LABS: TOTAL BILIRUBIN ADULT 4.3 MG/DL (0.2-1.0)
[2016-11-18 16:35] LABS: ALKALINE PHOSPHATASE 120 U/L (45-117)
--- NOTE | 2016-11-18 16:45 | PD ---
Physical Exam Date Seen by Provider: Nov 18, 2016 Time Seen by Provider: 16:43 Narrative This 86-year-old male presented with complaint of generalized weakness. He has a history of cardiomyopathy and has a pacemaker. He says that 2 nights ago he was having some epigastric/mid abdominal pain and he vomited several times. He says that since then he has not felt very well. He says he was vomiting a lot of brown material. He had a history of peptic ulcer many years ago. He does not drink alcohol. He does not take anti-inflammatory medication. He is on Coumadin. His says his speech has also been a little slurred the last few days. He has been seen by Dr. Edgar and multiple lab tests have been ordered. He does have heme positive stool which is brown in color. His hemoglobin is 14 with a white count of 8000. His total bilirubin is 4.3. AST is 158 with ALT of 271. His creatinine is 1.9 compared to a value of 1.2 a few months ago. Chest x-ray shows stable cardiomegaly with dual lead AICD. CT of the head is been read as negative. CT of the abdomen and pelvis shows a mass lesion in the mid pole of the left kidney. MRI or CTA is recommended. There is also colonic diverticulosis and a thick-walled gallbladder with mild pericholecystic fluid hydration possibility of acute cholecystitis. Hepatobiliary scan was recommended if clinically indicated. There are are noted to be gallstones. There is enlargement of the heart. Data Data Last Documented VS Vital Signs Date Time Temp Pulse Resp B/P Pulse Ox O2 Delivery O2 Flow Rate FiO2 11/18/16 18:04 80 16 116/64 96 Room Air 11/18/16 14:33 98.9 Orders Complete Blood Count With Diff (11/18/16 15:15) Comprehensive Metabolic Panel (11/18/16 15:15) Prothrombin Time / Inr (Pt) (11/18/16 15:15) Act Partial Throm Time (Ptt) (11/18/16 15:15) Urinalysis - C+S If Indicated (11/18/16 15:15) Ua Includes Microscopic (11/18/16 15:15) Type And Screen (11/18/16 15:15) Chest, Single Ap (11/18/16 15:15) Ecg Monitoring (11/18/16 15:15) Iv Access Insert/Monitor (11/18/16 15:15) Oximetry (11/18/16 15:15) Ondansetron Inj (Zofran Inj) (11/18/16 15:15) Sodium Chloride 0.9% Flush (Ns Flush) (11/18/16 15:15) Pantoprazole Inj (Protonix Inj) (11/18/16 15:15) Pantoprazole Inj (Protonix Inj) (11/18/16 15:15) Troponin I (11/18/16 15:15) Electrocardiogram (11/18/16 ) Ct Brain W/O Iv Contrast(Rout) (11/18/16 ) Sodium Chlor 0.9% 1000 Ml Inj (Ns 1000 M (11/18/16 16:30) B-Type Natriuretic Peptide (11/18/16 16:18) Ct Abd/Pel W/O Iv Contrast (11/18/16 ) Admit Order (Ed Use Only) (11/18/16 18:24) Labs Laboratory Tests Test 11/18/16 15:50 White Blood Count 8.6 TH/MM3 Red Blood Count 4.74 MIL/MM3 Hemoglobin 14.0 GM/DL Hematocrit 42.7 % Mean Corpuscular Volume 90.1 FL Mean Corpuscular Hemoglobin 29.5 PG Mean Corpuscular Hemoglobin 32.7 % Concent Red Cell Distribution Width 16.1 % Platelet Count 132 TH/MM3 Mean Platelet Volume 9.1 FL Neutrophils (%) (Auto) 76.7 % Lymphocytes (%) (Auto) 15.0 % Monocytes (%) (Auto) 7.9 % Eosinophils (%) (Auto) 0.2 % Basophils (%) (Auto) 0.2 % Neutrophils # (Auto) 6.6 TH/MM3 Lymphocytes # (Auto) 1.3 TH/MM3 Monocytes # (Auto) 0.7 TH/MM3 Eosinophils # (Auto) 0.0 TH/MM3 Basophils # (Auto) 0.0 TH/MM3 CBC Comment DIFF FINAL Differential Comment Prothrombin Time 39.6 SEC Prothromb Time International 3.4 RATIO Ratio Activated Partial 33.6 SEC Thromboplast Time Sodium Level 136 MEQ/L Potassium Level 4.8 MEQ/L Chloride Level 99 MEQ/L Carbon Dioxide Level 28.3 MEQ/L Anion Gap 9 MEQ/L Blood Urea Nitrogen 36 MG/DL Creatinine 1.90 MG/DL Estimat Glomerular Filtration 34 ML/MIN Rate Random Glucose 140 MG/DL Calcium Level 8.5 MG/DL Total Bilirubin 4.3 MG/DL Aspartate Amino Transf 158 U/L (AST/SGOT) Alanine Aminotransferase 271 U/L (ALT/SGPT) Alkaline Phosphatase 120 U/L Troponin I 0.05 NG/ML B-Type Natriuretic Peptide 77 PG/ML Total Protein 6.5 GM/DL Albumin 2.7 GM/DL Blood Type A POSITIVE Antibody Screen NEGATIVE [facility] Medical Record Reviewed: Yes Supervised Visit with MELINDA: No Differential Diagnosis Differential includes jaundice, obstructive jaundice, dehydration, GI bleed Narrative Course CT scan shows some pericholecystic fluid and there are gallstones. Patient is stable as far the GI bleed goes. His INR is elevated at 3.5. His hemoglobin is 14. He does have significant dehydration with a BUNs of 36 and creatinine of 1.9. He does have significant cardiomyopathy and history of CHF and will be hydrated cautiously Diagnosis Primary Impression: Jaundice Additional Impressions: GI bleed Qualified Code: K92.2 - Gastrointestinal hemorrhage, unspecified gastrointestinal hemorrhage type Dehydration Admitting Information Admitting Physician Requests: Admit Jarrod Albert MD Nov 18, 2016 16:45
--- NOTE | 2016-11-18 16:50 | RADHPO ---
EXAM DATE/TIME: 11/18/2016 15:35 [facility] COMPARISON: CHEST PA & LAT, July 16, 2016, 10:12. INDICATIONS : Patient has had chest pain and vomiting for three days. Patient is confused and is having trouble claudio athing. MEDICAL HISTORY : None. SURGICAL HISTORY : Pacemaker. ENCOUNTER: Initial ACUITY: 3 days PAIN SCORE: 0/10 LOCATION: Bilateral chest FINDINGS: There is a dual-lead AICD device in stable position. Cardiac silhouette is mildly enlarged. Lungs are clear. Vascularity is minimally indistinct. Remainder of the exam is unchanged. CONCLUSION: 1. Stable cardiomegaly with stable dual-lead AICD device. 2. No acute abnormality or significant interval change. Umesh Santos MD on November 18, 2016 at 16:47 Board Certified Radiologist. This report was verified electronically.
--- NOTE | 2016-11-18 17:13 | RADHPO ---
EXAM DATE/TIME: 11/18/2016 16:45 [facility] COMPARISON: No previous studies available for comparison. INDICATIONS : General weakness. RADIATION DOSE: 62.58 CTDIvol (mGy) MEDICAL HISTORY : Diabetes mellitus type 2. Congestive heart failure. Renal failure, chronic.Hypertension. SURGICAL HISTORY : Pacemaker. ENCOUNTER: Initial ACUITY: 2 days PAIN SCALE: 0/10 LOCATION: cranial TECHNIQUE: Multiple contiguous axial images were obtained of the head. Using automated exposure control and adj ustment of the mA and/or kV according to patient size, radiation dose was kept as low as reasonably a chievable to obtain optimal diagnostic quality images. FINDINGS: CEREBRUM: The ventricles are normal for age. No evidence of midline shift, mass lesion, hemorrhage or acute in farction. No extra-axial fluid collections are seen. POSTERIOR FOSSA: The cerebellum and brainstem are intact. The 4th ventricle is midline. The cerebellopontine angle i s unremarkable. EXTRACRANIAL: The visualized portion of the orbits is intact. SKULL: The calvaria is intact. No evidence of skull fracture. CONCLUSION: 1. No acute intercranial abnormality is identified. Jose Martin Foote MD on November 18, 2016 at 17:09 Board Certified Radiologist. This report was verified electronically.
--- NOTE | 2016-11-18 17:33 | RADHPO ---
EXAM DATE/TIME: 11/18/2016 16:49 [facility] COMPARISON: No previous studies available for comparison. INDICATIONS : Upper abdominal pain. Vomiting and diarrhea. General weakness. ORAL CONTRAST: No oral contrast ingested. RADIATION DOSE: 22.26 CTDIvol (mGy) MEDICAL HISTORY : Diabetes mellitus type 2. Congestive heart failure. Renal failure, chronic. Hypertension. SURGICAL HISTORY : Pacemaker. ENCOUNTER: Initial ACUITY: 3 days PAIN SCALE: 4/10 LOCATION: Bilateral upper quadrant TECHNIQUE: Volumetric scanning of the abdomen and pelvis was performed. Using automated exposure control and ad justment of the mA and/or kV according to patient size, radiation dose was kept as low as reasonably achievable to obtain optimal diagnostic quality images. FINDINGS: Evaluation of the solid organs of the abdomen is limited by the lack of intravenous contrast. There are tiny calcified nonobstructing bilateral renal calculi with the largest on the left measuring 7 mm . No acute obstructive uropathy is noted. There is a mass-like lesion within the midpole of the left kidney which appears to measure 3.8 x 4.3 cm. Contrast enhanced MRI or CT would be helpful for formerly [facility] assessment of this lesion to determine if this represents a solid mass or a complex cyst or promin ent column of Martin. Simple cysts are noted within the left kidney with the largest measuring 3.2 cm . The wall of the gallbladder is mildly thickened. Mild pericholecystic fluid is noted. If there is clinical concern for acute cholecystitis a hepatobiliary scan may be helpful to confirm cystic duct obstruction. There is a tiny calcified gallstone within the gallbladder lumen. The adrenal glands ar e unremarkable. The abdominal aorta is calcified but is not aneurysmally dilated. The inferior vena cava is normal. No paraortic, retroperitoneal or mesenteric lymphadenopathy is noted. Uncomplicated colonic diverticulosis is noted. The prostate gland is enlarged. The urinary bladder is unremarkabl e. Degenerative changes and scoliosis of the thoracolumbar spine are noted. The heart is enlarged. There is a subcutaneous/intramuscular lipoma within the inferior aspect of the right axilla measurin g 6.3 cm in greatest dimension. CONCLUSION: 1. 3.8 x 4.3 cm mass-like lesion within the midpole of the left kidney. MRI or CTA of the abdomen wit h contrast would be helpful for further characterization of this lesion to determine if this represen ts a complex cyst, solid mass or prominent column of Martin. If this represents a solid mass, renal cell carcinoma should be considered most likely in a patient of this age. 2. Uncomplicated colonic diverticulosis. 3. Thick-walled gallbladder with mild pericholecystic fluid raising the possibility of acute cholecys titis. A hepatobiliary scan may be helpful to confirm cystic duct obstruction if clinically indicate d. 4. Cholelithiasis. 5. Calcified nonobstructing bilateral renal calculi. 6. Enlarged prostate. 7. Cardiomegaly. 8. Degenerative changes and scoliosis of the thoracolumbar spine. 9. Subcutaneous/intramuscular lipoma within the inferior aspect of the right axilla measuring approxi mately 6.3 cm in size. Nando Dyer MD on November 18, 2016 at 17:08 Board Certified Radiologist. This report was verified electronically.
[2016-11-18] MEDS ORDERED: SODIUM CHLORIDE 0.9% FLUSH 10 ML FLUSH IV FLUSH PRN (18:30)
[2016-11-18] MEDS ORDERED: DEXTROSE 50% IN WATER 50 ML VIAL(D50) IV PRN (18:30)
[2016-11-18] MEDS ORDERED: GLUCAGON 1 MG/ML VIAL IM PRN (18:30)
[2016-11-18] MEDS ORDERED: ACETAMINOPHEN 325 MG TAB PO PRN (18:30)
[2016-11-18] MEDS ORDERED: ONDANSETRON HCL 4 MG/2 ML VIAL IVP PRN (18:30)
[2016-11-18] MEDS ORDERED: SENNOSIDES 8.6 MG TAB PO PRN (18:30)
[2016-11-18 18:37] LABS: BLOOD, URINE TRACE (NEG); GLUCOSE,URINE NEG (NEG); KETONE, URINE TRACE mg/dL (NEG); NITRITE,URINE NEG (NEG); PH, URINE 5.5 (5.0-8.5)
[2016-11-18 18:46] LABS: COMMENT (UR) CULT NOT INDICATED; CULTURE IF INDICATED CULT NOT INDICATED; SQUAMOUS EPITHELIAL CELL URINE 0-5 /hpf (0-5); URINE COLOR AMBER (YELLW/STRAW)
[2016-11-18] MEDS: INSULIN ASPART SUPPLEMENTAL SCALE SQ SCH (20:11)
[2016-11-18] MEDS: SODIUM CHLOR 0.9% 1000 ML INJ 1,000 ML IV SCH (20:13)
[2016-11-18] MEDS: DOCUSATE SODIUM 50 MG/SENNA 8.6 MG TAB PO SCH (21:00)
[2016-11-18] MEDS: CARVEDILOL 12.5 MG TAB PO SCH (21:00)
[2016-11-18] MEDS: BUMETANIDE 1 MG TAB PO SCH (21:22)
[2016-11-18] MEDS: SODIUM CHLORIDE 0.9% FLUSH 10 ML FLUSH IV FLUSH SCH (21:22)
[2016-11-18 22:15] LABS: HEMATOCRIT 40.5 % (39.0-51.0)
[2016-11-18 22:21] LABS: REVIEW FLAG FINAL
[2016-11-19] VITALS (27 sets, daily range): BP systolic 87–135; BP diastolic 49–70; PULSE 80–83; RESP 12–30; TEMP 97.6–98.7; O2SAT 93–100
[2016-11-19] MEDS: PANTOPRAZOLE INJ 80 MG in SODIUM CHLORIDE 0.9% INJ 100 ML IV SCH (00:31)
[2016-11-19] MEDS: SODIUM CHLOR 0.9% 1000 ML INJ 1,000 ML IV SCH ×3 (00:32→20:07)
[2016-11-19 04:43] LABS: AUTOMATED NEUTROPHIL # 4.8 TH/MM3 (1.8-7.7); BASOPHIL # 0.1 TH/MM3 (0-0.2); BASOPHIL % 1.5 % (0.0-2.0); EOSINOPHIL % 0.3 % (0.0-4.0); HEMATOCRIT 40.5 % (39.0-51.0); HEMO FLAGS DIFF FINAL; LYMPH % 13.4 % (9.0-44.0); LYMPHOCYTE # 0.8 TH/MM3 (1.0-4.8); MEAN CORPUSCULAR HEMOGLOBIN 29.9 PG (27.0-34.0); MEAN CORPUSCULAR HGB CONC 33.6 % (32.0-36.0); MONO % 6.6 % (0.0-8.0); NEUT % 78.2 % (16.0-70.0); PLATELET COUNT 102 TH/MM3 (150-450); RED BLOOD COUNT 4.55 MIL/MM3 (4.50-5.90); RED CELL DISTRIBUTION WIDTH 15.7 % (11.6-17.2); WHITE BLOOD COUNT 6.1 TH/MM3 (4.0-11.0)
[2016-11-19] MEDS: INSULIN ASPART SUPPLEMENTAL SCALE SQ SCH ×4 (04:48→20:05)
[2016-11-19 04:56] LABS: PROTHROMBIN TIME - PATIENT 46.6 SEC (9.8-11.6)
[2016-11-19 05:07] LABS: ALKALINE PHOSPHATASE 132 U/L (45-117); ALT (GPT) 205 U/L (12-78); ANION GAP 10 MEQ/L (5-15); AST (GOT) 95 U/L (15-37); BICARBONATE 28.4 MEQ/L (21.0-32.0); BLOOD UREA NITROGEN 33 MG/DL (7-18); CHLORIDE 99 MEQ/L (98-107); GLOMERULAR FILTRATION RATE 45 ML/MIN (>89); POTASSIUM 3.7 MEQ/L (3.5-5.1); SODIUM (NA) 137 MEQ/L (136-145); TOTAL BILIRUBIN ADULT 2.5 MG/DL (0.2-1.0)
[2016-11-19] MEDS: SPIRONOLACTONE 25 MG TAB PO SCH (08:12)
[2016-11-19] MEDS: CARVEDILOL 12.5 MG TAB PO SCH ×2 (08:12→20:06)
[2016-11-19] MEDS: DOCUSATE SODIUM 50 MG/SENNA 8.6 MG TAB PO SCH ×2 (08:12→20:06)
[2016-11-19] MEDS: BUMETANIDE 1 MG TAB PO SCH ×2 (08:12→20:06)
[2016-11-19] MEDS: SODIUM CHLORIDE 0.9% FLUSH 10 ML FLUSH IV FLUSH SCH ×2 (08:12→20:06)
--- NOTE | 2016-11-19 10:28 | HHI.HP ---
Akash HPI Service [facility] Primary Care Physician Laz Bustos MD Admission Diagnosis DEHYDRATION, GI BLEED, JAUNDICE Diagnoses: Chief Complaint: Weakness Travel History International Travel<30 Days: No Contact w/Intl Traveler <30 Da: No Traveled to Known Affected Are: No History of Present Illness Patient is a 86-year-old gentleman with a history of cardiomyopathy and a known EF of 30% status post AICD/pacer we will came to the emergency room yesterday with complaint of malaise and weakness for about 3 days. He had one day of vomiting brown emesis which she was concerned with blood. He did come to the emergency room for further evaluation of these issues. His reported that he had turned "yellow" and he admits he had been eating poorly over the last few days. Recently his cardiac medication (Entresto) had been doubled by his upper stitcher and he continue to take his medicines despite feeling poorly. He notes no new pain other than his chronic back pain for which she has been taking acetaminophen. He has not had any fevers or chills. On his arrival to the emergency room he was quite hypotensive and orthostatic. The patient was given a minimal IV fluids and admitted to the ICU for further evaluation. He was given continuous IV hydration overnight and improved somewhat. He still feels weak but improved from his initial complaint. There is been no more emesis. He did have Hemoccult-positive stools on exam. His hemoglobin has remained stable Review of Systems Constitutional: DENIES: Diaphoretic episodes, Fatigue, Fever, Weight gain, Weight loss, Chills, Dizziness, Change in appetite, Night Sweats Endocrine: DENIES: Heat/cold intolerance, Polydipsia, Polyuria, Polyphagia Eyes: DENIES: Blurred vision, Diplopia, Eye inflammation, Eye pain, Vision loss , Photosensitivity, Double Vision Respiratory: DENIES: Apneas, Cough, Snoring, Wheezing, Hemoptysis, Sputum production, Shortness of breath Cardiovascular: DENIES: Chest pain, Palpitations, Syncope, Dyspnea on Exertion , PND, Lower Extremity Edema, Orthopnea, Claudication Gastrointestinal: COMPLAINS OF: Nausea, Vomiting, DENIES: Abdominal pain, Black stools, Bloody stools, Constipation, Diarrhea, Difficulty Swallowing, Anorexia Musculoskeletal: COMPLAINS OF: Back pain, DENIES: Joint pain, Muscle aches, Stiffness, Joint Swelling, Neck pain Integumentary: DENIES: Abnormal pigmentation, Nail changes, Pruritus, Rash Hematologic/lymphatic: DENIES: Bruising, Lymphadenopathy Neurologic: DENIES: Abnormal gait, Headache, Localized weakness, Paresthesias, Seizures, Speech Problems, Tremor, Poor Balance Psychiatric: DENIES: Anxiety, Confusion, Mood changes, Depression, Hallucinations, Agitation, Suicidal Ideation, Homicidal Ideation, Delusions Past Family Social History Past Medical History DM2 HTN Cardiomyopathy Past Surgical History Defibrillator placement Reported Medications Reviewed in the medical record, recently doubled his entresto per his upper stitcher Allergies: Coded Allergies: Morphine (Verified Allergy, Severe, CONFUSION, 11/18/16) Active Ordered Medications Reviewed in the medical record Family History Mother from stroke, father from leukemia Social History , 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[facility], 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, 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 or alcohol dependency Physical Exam Vital Signs Vital Signs Date Time Temp Pulse Resp B/P Pulse Ox O2 Delivery O2 Flow Rate FiO2 11/19/16 08:00 80 21 102/58 97 11/19/16 08:00 83 11/19/16 07:00 98.6 80 23 134/68 11/19/16 06:00 80 11/19/16 06:00 80 22 103/64 100 11/19/16 05:00 98.6 82 26 118/64 100 11/19/16 04:00 82 11/19/16 03:00 80 12 117/60 98 11/19/16 02:00 82 18 118/70 96 11/19/16 02:00 82 11/19/16 01:00 82 19 111/59 96 11/19/16 00:00 80 11/19/16 00:00 98.4 80 19 135/66 99 11/18/16 23:00 80 20 110/60 11/18/16 22:30 80 20 119/66 11/18/16 22:00 80 11/18/16 21:00 80 11/18/16 21:00 98.8 80 18 115/58 93 11/18/16 20:38 80 18 128/72 96 11/18/16 20:00 84 16 128/72 96 Room Air 11/18/16 19:15 Room Air 11/18/16 19:15 82 17 150/75 97 Room Air 11/18/16 18:38 80 18 128/63 80 18 94/54 83 18 77/48 11/18/16 18:04 80 16 116/64 96 Room Air 11/18/16 16:34 80 18 98/48 97 Room Air 11/18/16 15:21 16 97 Room Air 11/18/16 15:06 78 18 97 Room Air 11/18/16 14:33 98.9 79 16 80/46 94 Physical Exam GENERAL: This is an elderly well-nourished, well-developed patient, in no apparent distress. SKIN: No rashes, ecchymoses or lesions. Cool and dry. HEAD: Atraumatic. Normocephalic. No temporal or scalp tenderness. EYES: Pupils equal round and reactive. Extraocular motions intact. mildly jaundiced. No injection or drainage. ENT: Nose without bleeding, purulent drainage or septal hematoma. Throat without erythema, tonsillar hypertrophy or exudate. Uvula midline. Airway patent. NECK: Trachea midline. No JVD or lymphadenopathy. Supple, nontender, no meningeal signs. CARDIOVASCULAR: Regular rate and rhythm without murmurs, gallops, or rubs. RESPIRATORY: Clear to auscultation. Breath sounds equal bilaterally. No wheezes , rales, or rhonchi. GASTROINTESTINAL: Abdomen soft, non-tender, nondistended. No hepato-splenomegaly , or palpable masses. No guarding. MUSCULOSKELETAL: Extremities without clubbing, cyanosis, or edema. No joint tenderness, effusion, or edema noted. No calf tenderness. Negative Homans sign bilaterally. NEUROLOGICAL: Awake and alert. Cranial nerves II through XII intact. Motor and sensory grossly within normal limits. Five out of 5 muscle strength in all muscle groups. Normal speech. Laboratory Laboratory Tests Test 11/18/16 11/18/16 11/18/16 11/19/16 15:50 18:26 22:10 04:26 White Blood Count 8.6 Red Blood Count 4.74 Hemoglobin 14.0 13.4 Hematocrit 42.7 40.5 Mean Corpuscular Volume 90.1 Mean Corpuscular Hemoglobin 29.5 Mean Corpuscular Hemoglobin 32.7 Concent Red Cell Distribution Width 16.1 Platelet Count 132 Mean Platelet Volume 9.1 Neutrophils (%) (Auto) 76.7 Lymphocytes (%) (Auto) 15.0 Monocytes (%) (Auto) 7.9 Eosinophils (%) (Auto) 0.2 Basophils (%) (Auto) 0.2 Neutrophils # (Auto) 6.6 Lymphocytes # (Auto) 1.3 Monocytes # (Auto) 0.7 Eosinophils # (Auto) 0.0 Basophils # (Auto) 0.0 CBC Comment DIFF FINAL Differential Comment Prothrombin Time 39.6 Prothromb Time International 3.4 Ratio Activated Partial 33.6 Thromboplast Time Sodium Level 136 Potassium Level 4.8 Chloride Level 99 Carbon Dioxide Level 28.3 Anion Gap 9 Blood Urea Nitrogen 36 Creatinine 1.90 Estimat Glomerular Filtration 34 Rate Random Glucose 140 Calcium Level 8.5 Total Bilirubin 4.3 Aspartate Amino Transf 158 (AST/SGOT) Alanine Aminotransferase 271 (ALT/SGPT) Alkaline Phosphatase 120 Troponin I 0.05 0.04 0.05 B-Type Natriuretic Peptide 77 Total Protein 6.5 Albumin 2.7 Blood Type A POSITIVE Antibody Screen NEGATIVE Urine Color TONA Urine Turbidity CLEAR Urine pH 5.5 Urine Specific [place] 1.017 Urine Protein NEG Urine Glucose (UA) NEG Urine Ketones TRACE Urine Occult Blood TRACE Urine Nitrite NEG Urine Bilirubin MOD Urine Leukocyte Esterase NEG Urine RBC 3-5 Urine WBC 6-8 Urine Squamous Epithelial 0-5 Cells Urine Bacteria NONE Microscopic Urinalysis Comment CULT NOT INDICATED Test 11/19/16 04:35 White Blood Count 6.1 Red Blood Count 4.55 Hemoglobin 13.6 Hematocrit 40.5 Mean Corpuscular Volume 89.0 Mean Corpuscular Hemoglobin 29.9 Mean Corpuscular Hemoglobin 33.6 Concent Red Cell Distribution Width 15.7 Platelet Count 102 Mean Platelet Volume 7.9 Neutrophils (%) (Auto) 78.2 Lymphocytes (%) (Auto) 13.4 Monocytes (%) (Auto) 6.6 Eosinophils (%) (Auto) 0.3 Basophils (%) (Auto) 1.5 Neutrophils # (Auto) 4.8 Lymphocytes # (Auto) 0.8 Monocytes # (Auto) 0.4 Eosinophils # (Auto) 0.0 Basophils # (Auto) 0.1 CBC Comment DIFF FINAL Differential Comment Prothrombin Time 46.6 Prothromb Time International 4.0 Ratio Sodium Level 137 Potassium Level 3.7 Chloride Level 99 Carbon Dioxide Level 28.4 Anion Gap 10 Blood Urea Nitrogen 33 Creatinine 1.50 Estimat Glomerular Filtration 45 Rate Random Glucose 108 Calcium Level 8.2 Total Bilirubin 2.5 Aspartate Amino Transf 95 (AST/SGOT) Alanine Aminotransferase 205 (ALT/SGPT) Alkaline Phosphatase 132 Total Protein 6.4 Albumin 2.6 Result Diagram: 11/19/16 0435 11/19/16 0435 Imaging Last Impressions Chest X-Ray 11/18/16 1515 Signed Impressions: Service Date/Time: November 15:35 - CONCLUSION: 1. Stable cardiomegaly with stable dual-lead AICD device. 2. No acute abnormality or significant interval change. Umesh Santos MD Head CT 11/18/16 0000 Signed Impressions: Service Date/Time: November 16:45 - CONCLUSION: 1. No acute intercranial abnormality is identified. Jose Martin Foote MD Abdomen/Pelvis CT 11/18/16 0000 Signed Impressions: Service Date/Time: November 16:49 - CONCLUSION: 1. 3.8 x 4.3 cm mass-like lesion within the midpole of the left kidney. MRI or CTA of the abdomen with contrast would be helpful for further characterization of this lesion to determine if this represents a complex cyst, solid mass or prominent column of Martin. If this represents a solid mass, renal cell carcinoma should be considered most likely in a patient of this age. 2. Uncomplicated colonic diverticulosis. 3. Thick-walled gallbladder with mild pericholecystic fluid raising the possibility of acute cholecystitis. A hepatobiliary scan may be helpful to confirm cystic duct obstruction if clinically indicated. 4. Cholelithiasis. 5. Calcified nonobstructing bilateral renal calculi. 6. Enlarged prostate. 7. Cardiomegaly. 8. Degenerative changes and scoliosis of the thoracolumbar spine. 9. Subcutaneous/intramuscular lipoma within the inferior aspect of the right axilla measuring approximately 6.3 cm in size. Nando Dyer MD Assessment and Plan Problem List: (1) GI bleed ICD Code: K92.2 Status: Acute Plan: Hemoccult positive per ER M.D., possibly hematemesis. Appears to be resolved with stable hemoglobin at this time We'll follow trend and transfuse as needed, GI consulted on Coumadin due to Afib INR higher today will need to follow trend add Vit K (2) Dehydration ICD Code: E86.0 Status: Acute Plan: Cont slower IVF due to CHF hx hold acei/arb (3) Cardiomyopathy ICD Code: I42.9 Status: Acute Plan: S/P AICD ([facility]/kimberli) On BB/ACEi/ARB/Aldactone/Bumex/Matalozone ef 30% 07/2016 (4) Thrombocytopenia ICD Code: D69.6 Status: Acute Plan: etiology unclear at this time may be postviral we'll follow trend , (5) Hypotension ICD Code: I95.9 Status: Acute Plan: improved after IVF, follow trend Hold acei/arb med for now (recently doubled per cards) (6) LFTs abnormal ICD Code: R79.89 Status: Acute Plan: Ultrasound gallbladder/liver pending We'll discuss with gastroenterology Overall trend is improved Alkaline phosphatase increased GGT, hepatitis profile pending (7) ARF (acute renal failure) ICD Code: N17.9 Status: Acute Plan: Improved with IV hydration, avoid further nephrotoxic injury urinalysis consistent with dehydration without infection (8) Renal mass ICD Code: N28.89 Status: Acute Plan: Patient, may need a renal biopsy Continue to improve medical condition and consider outpatient versus inpatient biopsy (9) Jaundice ICD Code: R17 Status: Acute Plan: Bilirubin elevated, ultrasound pending (10) DM2 (diabetes mellitus, type 2) ICD Code: E11.9 Status: Acute Plan: Home we'll hold metformin secondary to acute kidney injury Continue insulin and sliding scale and ADA diet Assessment and Plan Plan of care to be determined by Hospital course Discussed Condition With Patient, CHRISTA Esquivel, REGIST[employer]AR [employer] and spouse Physician Certification 2 Midnight Certification Type: Admission for Inpatient Services Order for Inpatient Services The services are ordered in accordance with Medicare regulations or non- Medicare payer requirements, as applicable. In the case of services not specified as inpatient-only, they are appropriately provided as inpatient services in accordance with the 2-midnight benchmark. Estimated LOS (days): 3 3 days is the estimated time the patient will need to remain in the hospital, assuming treatment plan goals are met and no additional complications. Post-Hospital Plan: Home Problem Qualifiers (1) GI bleed: Qualified Code: K92.2 - Gastrointestinal hemorrhage, unspecified gastrointestinal hemorrhage type Christine Posey MD Nov 19, 2016 10:28
[2016-11-19] MEDS ORDERED: PHYTONADIONE 5 MG TAB PO ONE (11:00)
--- NOTE | 2016-11-19 11:31 | MB ---
cc: SAMSON JUAREZ,SAGAR [place] DATE OF CONSULTATION: 11/19/[address] Posey REASON FOR REFERRAL Jaundice, nausea and vomiting. Thank you for the consultation. HISTORY OF PRESENT ILLNESS An 86-year-old white male who is a very poor historian. The patient stated that he came to the hospital because of generalized weakness in the last few days and he stated that two days ago he had some nausea and vomiting with dark emesis and no blood. He had some abdominal discomfort and known to have peptic ulcer disease many years ago. The patient according to the chart was having some slurred speech according to his . Currently lying in bed. He had jaundice and seems like he had significant dehydration. CT scan showed a mass which is possible kidney cancer, being worked up for that. Currently the patient is lying in bed without any complaint, comfortable. REVIEW OF SYSTEMS All 12-point negative except HPI. PAST MEDICAL HISTORY 1. Hypercholesterolemia. 2. Congestive heart failure. 3. Left bundle branch block. 4. Mitral regurgitation. 5. Cardiomyopathy. 6. Atrial fibrillation, on Coumadin. 7. Diabetes. 8. Reflux symptoms. 9. History of peptic ulcer disease. 10.History of myocardial infarction with congestive heart failure. 11.Pacemaker placed. SOCIAL HISTORY Negative for tobacco, drugs or alcohol. ALLERGIES MORPHINE. MEDICATIONS Medications reviewed in the chart. REVIEW OF SYSTEMS The patient is a poor historian but complained of general weakness and some chest discomfort. Positive for nausea and some abdominal discomfort. No vomiting at this time but he had that a few days ago. PHYSICAL EXAMINATION GENERAL: Alert, oriented, in no acute distress, lying in bed. SKIN: The skin shows some jaundice. HEENT: Pupils round and reactive to light with normal extraocular movements. NECK: Supple. CHEST: Clear to auscultation and percussion. CARDIAC: Regular rate and rhythm at this time. No murmur or gallop. ABDOMEN: Soft, nondistended, mild discomfort. Positive bowel sounds. No hepatosplenomegaly I could appreciate. No masses I could appreciate. EXTREMITIES: Normal range of motion. NEUROLOGIC: Neurologically intact. PSYCH: Psychologically appropriate at this time. LABORATORY Sodium 137, potassium 3.7, BUN 33, creatinine 1.5, calcium 8.2, total bilirubin 2.5 down from 4.3, AST 95 down from 158, ALT 205 down from 271, alk phos 132, albumin 2.6. White count 6.1, hemoglobin 13.6, platelet count 102. IMAGING CT scan showed possible mass in the left kidney. Gallstones. Questions cholecystitis. ASSESSMENT AND PLAN 1. An 86-year-old gentleman with jaundice, could be cholecystitis. A HIDA scan was recommended, agree with that. His numbers are improving. This could be congestion either from congestive heart failure or it could be hepatitis. I doubt that there is biliary duct obstruction. Also the patient was dehydrated so it could be hepatitis. Since it dropped significantly overnight, will monitor it for another day. If it is still elevated we will order a hepatitis profile and we will see if there is any sign of obstruction on Hida scan. 2. Nausea and vomiting, could be gastritis versus peptic ulcer disease. Also the patient has diarrhea. If the patient is stable in the next couple of days we could consider doing an upper endoscopy and a colonoscopy. MD LANE Balderrama/JOHN /10:59 AM /11:18 AM
[2016-11-19 13:53] LABS: CREATINE KINASE 279 U/L (39-308)
[2016-11-19 16:17] LABS: ACETAMINOPHEN LESS THAN 2.0 MCG/ML (10.0-30.0); GAMMA GT 408 U/L (15-85)
--- NOTE | 2016-11-19 16:59 | RADHPO ---
EXAM DATE/TIME: 11/19/2016 19:25 [facility] COMPARISON: No previous studies available for comparison. INDICATIONS : Elevated LFTs and mass. MEDICAL HISTORY : Congestive heart failure. Hypercholesterolemia. Hypertension. Myocardial infarction. Cardiomyopathy. Coronoary artery disease. Atrial fibrillation. Diabetes mellitus type 2. Renal failure, chronic. SURGICAL HISTORY : Back surgery for spinal tumor. Pacemaker. ENCOUNTER: Initial ACUITY: 4-6 days PAIN SCORE: 1/10 LOCATION: Bilateral upper quadrant MEASUREMENTS: LIVER: 16.8 cm length COMMON DUCT: 2 mm RIGHT KIDNEY: 10.9 x 6.9 x 6.1 cm LEFT KIDNEY: 13.4 x 6.2 x 6.9 cm SPLEEN: 12.8 cm length AORTA: 2.8cm maximal FINDINGS: LIVER: Normal echotexture without focal lesion or ductal dilatation. COMMON DUCT: No intraluminal mass or stone visualized. GALLBLADDER: The exam demonstrates a stone in the dependent portion of the gallbladder measuring approximately 5 m m. There is mild diffuse gallbladder wall thickening. The gallbladder is somewhat contracted. There i s no para cholecystic fluid. PANCREAS: The visualized portions are within normal limits. RIGHT KIDNEY: There is no hydronephrosis. The exam does demonstrate a 1.1 x 0.3 cm stone. LEFT KIDNEY: There is no hydronephrosis. There are 2 simple cysts identified. These measure 2.8 x 3.3 CM and 3.6 x 3.5 CM respectively. SPLEEN: No focal lesion. AORTA: Non aneurysmal. IVC: Within normal limits. CONCLUSION: 1. Stone in the dependent portion the gallbladder. There is some mild thickening of the gallbladder w all. The gallbladder is somewhat contracted. There is no para cholecystic fluid. 2. 1.1 x 1.1 x 0.3 cm stone within the collecting system of the right kidney. 3. 2 small simple cysts identified within the left kidney. Jose Martin Foote MD on November 19, 2016 at 16:54 Board Certified Radiologist. This report was verified electronically.
[2016-11-19 21:54] LABS: BLOOD, URINE LARGE (NEG); GLUCOSE,URINE NEG (NEG); KETONE, URINE NEG (NEG); NITRITE,URINE NEG (NEG); PH, URINE 5.5 (5.0-8.5)
[2016-11-19 22:02] LABS: URINE COLOR YELLOW (YELLW/STRAW)
[2016-11-19 22:03] LABS: RBC, URINE INNUM /hpf (0-3); SQUAMOUS EPITHELIAL CELL URINE 0-5 /hpf (0-5)
[2016-11-19 22:04] LABS: COMMENT (UR) CULT NOT INDICATED; CULTURE IF INDICATED CULT NOT INDICATED
--- NOTE | 2016-11-19 22:47 | EKG ---
Date Performed: 11/18/2016 Time Performed: 15:35:14 PTAGE: 86 years EKG: ELECTRONIC VENTRICULAR PACEMAKER ABNORMAL RHYTHM ECG PREVIOUS TRACING : 07/16/2016 03.46 DOCTOR: Elmer Torres Interpretating Date/Time 11/19/2016 22:45:37
[2016-11-20] VITALS (24 sets, daily range): BP systolic 101–143; BP diastolic 51–72; PULSE 78–82; RESP 9–26; TEMP 98.1–99.8; O2SAT 93–97
[2016-11-20] MEDS: INSULIN ASPART SUPPLEMENTAL SCALE SQ SCH ×5 (05:11→20:38)
[2016-11-20 06:32] LABS: AUTOMATED NEUTROPHIL # 3.6 TH/MM3 (1.8-7.7); BASOPHIL % 0.3 % (0.0-2.0); EOSINOPHIL % 0.6 % (0.0-4.0); HEMATOCRIT 39.4 % (39.0-51.0); LYMPH % 21.4 % (9.0-44.0); LYMPHOCYTE # 1.2 TH/MM3 (1.0-4.8); MEAN CELL VOLUME 88.6 FL (80.0-100.0); MEAN CORPUSCULAR HEMOGLOBIN 29.9 PG (27.0-34.0); MEAN CORPUSCULAR HGB CONC 33.7 % (32.0-36.0); MONO % 13.1 % (0.0-8.0); NEUT % 64.6 % (16.0-70.0); PLATELET COUNT 108 TH/MM3 (150-450); RED BLOOD COUNT 4.45 MIL/MM3 (4.50-5.90); RED CELL DISTRIBUTION WIDTH 15.3 % (11.6-17.2); WHITE BLOOD COUNT 5.5 TH/MM3 (4.0-11.0)
[2016-11-20 06:38] LABS: CHLORIDE 100 MEQ/L (98-107); POTASSIUM 3.7 MEQ/L (3.5-5.1); SODIUM (NA) 137 MEQ/L (136-145)
[2016-11-20 06:40] LABS: INTERNATIONAL NORMALIZED RATIO 1.5 RATIO; PROTHROMBIN TIME - PATIENT 16.8 SEC (9.8-11.6)
[2016-11-20 06:42] LABS: ANION GAP 8 MEQ/L (5-15); BICARBONATE 28.6 MEQ/L (21.0-32.0); BLOOD UREA NITROGEN 29 MG/DL (7-18)
[2016-11-20 06:45] LABS: ALT (GPT) 137 U/L (12-78); AST (GOT) 49 U/L (15-37); GLOMERULAR FILTRATION RATE 58 ML/MIN (>89)
[2016-11-20 06:46] LABS: TOTAL BILIRUBIN ADULT 1.4 MG/DL (0.2-1.0)
[2016-11-20 06:48] LABS: ALKALINE PHOSPHATASE 172 U/L (45-117); HEMO FLAGS DIFF FINAL
[2016-11-20] MEDS: METOLAZONE 5 MG TAB PO SCH (09:00)
[2016-11-20] MEDS: SODIUM CHLORIDE 0.9% FLUSH 10 ML FLUSH IV FLUSH SCH ×2 (09:00→20:31)
[2016-11-20] MEDS: DOCUSATE SODIUM 50 MG/SENNA 8.6 MG TAB PO SCH ×2 (09:00→20:30)
[2016-11-20] MEDS: BUMETANIDE 1 MG TAB PO SCH ×2 (09:00→20:30)
[2016-11-20] MEDS: PANTOPRAZOLE SOD 40 MG DELAYED RELEASE TAB PO SCH (09:00)
[2016-11-20] MEDS: SPIRONOLACTONE 25 MG TAB PO SCH (09:00)
[2016-11-20] MEDS: CARVEDILOL 12.5 MG TAB PO SCH ×2 (09:00→20:30)
--- NOTE | 2016-11-20 11:44 | RADHPO ---
EXAM DATE/TIME: 11/20/2016 09:58 [place] COMPARISON: CT ABDOMEN & PELVIS W/O CONTRAST, November 18, 2016, 16:49. US ABDOMEN - COMPLETE, November 19, 2016, 19:25. INDICATIONS : Abdominal pain with nausea, vomiting, elevated LFT's and jaundice. DOSE: 4.1 mCi Tc99m Mebrofenin IV MEDICAL HISTORY : Diabetes mellitus type 2. Congestive heart failure. Renal failure, chronic. Hypertension, cardiomyopa thy, atrial fibrillation and left bundle branch block. SURGICAL HISTORY : Pacemaker. Spinal tumor removed. ENCOUNTER: Initial ACUITY: 2 days PAIN SCALE: 2/10 LOCATION: Right upper quadrant TECHNIQUE: Following the intravenous administration of radiotracer, dynamic sequential images were performed wit h continuous acquisition. FINDINGS: HEPATIC KINETICS: There is prompt uptake of radiotracer in the liver. No focal defects are seen. There is normal rate of washout from the hepatic parenchyma. BILIARY CLEARANCE: Activity is first seen in the extrahepatic biliary system at 15 minutes. There is normal excretion i nto the small bowel. GALLBLADDER: Activity is first seen in the gallbladder at 55 minutes. BILIARY ENTRIC REFLUX: There is reflux into the stomach. CONCLUSION: Activity is documented within the gallbladder which excludes cystic duct obstruction. David Mcclendon MD on November 20, 2016 at 11:39 Board Certified Radiologist. This report was verified electronically.
--- NOTE | 2016-11-20 12:01 | PD.PN.STU ---
Subjective Remarks Patient states that he is feeling well, no acute complaints or changes overnight. He was able to sleep better with this CPAP machine. Denies chest pain , shortness of breath, abdominal pain, nausea, vomiting, dizziness, visual changes. Condom catheter still in place. BM yesterday was normal. He still has some difficulty walking, he uses a cane at home. He had a HIDA scan done this morning, he was not in any pain during the scan. Objective Vitals Vital Signs Date Time Temp Pulse Resp B/P Pulse Ox O2 Delivery O2 Flow Rate FiO2 11/20/16 10:34 80 11/20/16 10:00 80 11/20/16 09:02 80 21 132/66 97 11/20/16 08:02 82 25 123/65 96 11/20/16 08:00 80 11/20/16 08:00 98.1 11/20/16 06:13 130/60 11/20/16 06:00 80 11/20/16 05:02 80 25 122/65 97 11/20/16 04:02 99.8 80 24 121/62 97 11/20/16 04:00 80 11/20/16 03:02 80 21 137/68 94 11/20/16 02:02 80 22 140/72 94 11/20/16 02:00 82 11/20/16 01:02 80 20 143/67 93 11/20/16 00:02 98.4 80 24 119/62 95 11/20/16 00:00 80 11/19/16 23:02 80 27 118/52 95 11/19/16 22:02 80 17 129/67 95 11/19/16 22:00 80 11/19/16 21:02 80 23 116/61 11/19/16 20:02 98.6 80 22 117/53 93 11/19/16 20:00 80 11/19/16 20:00 95 Nasal Cannula 2.00 11/19/16 19:09 80 30 106/54 96 11/19/16 18:00 80 11/19/16 17:00 80 11/19/16 16:00 80 11/19/16 16:00 97.6 80 18 99/60 97 11/19/16 15:00 80 11/19/16 15:00 80 26 103/51 95 11/19/16 14:00 80 11/19/16 14:00 80 21 107/51 98 11/19/16 13:00 80 19 107/55 98 11/19/16 12:00 98.7 80 20 105/58 95 11/19/16 12:00 80 I/O 11/19/16 11/19/16 11/19/16 11/20/16 11/20/16 11/20/16 07:00 15:00 23:00 07:00 15:00 23:00 Intake Total 880 ml 1591 ml 412 ml Output Total 800 ml 1550 ml 1300 ml Balance 880 ml 791 ml -1138 ml -1300 ml Intake Oral 420 ml IV Total 880 ml 1171 ml 412 ml Output Urine Total 800 ml 1550 ml 1300 ml # Voids 1 4 # Bowel Movements 1 Result Diagram: 11/20/16 0546 11/20/16 0546 Imaging Vital Signs Date Time Temp Pulse Resp B/P Pulse Ox O2 Delivery O2 Flow Rate FiO2 11/20/16 10:34 80 11/20/16 10:00 80 11/20/16 09:02 80 21 132/66 97 11/20/16 08:02 82 25 123/65 96 11/20/16 08:00 80 11/20/16 08:00 98.1 11/20/16 06:13 130/60 11/20/16 06:00 80 11/20/16 05:02 80 25 122/65 97 11/20/16 04:02 99.8 80 24 121/62 97 11/20/16 04:00 80 11/20/16 03:02 80 21 137/68 94 11/20/16 02:02 80 22 140/72 94 11/20/16 02:00 82 11/20/16 01:02 80 20 143/67 93 11/20/16 00:02 98.4 80 24 119/62 95 11/20/16 00:00 80 11/19/16 23:02 80 27 118/52 95 11/19/16 22:02 80 17 129/67 95 11/19/16 22:00 80 11/19/16 21:02 80 23 116/61 11/19/16 20:02 98.6 80 22 117/53 93 11/19/16 20:00 80 11/19/16 20:00 95 Nasal Cannula 2.00 11/19/16 19:09 80 30 106/54 96 11/19/16 18:00 80 11/19/16 17:00 80 11/19/16 16:00 80 11/19/16 16:00 97.6 80 18 99/60 97 11/19/16 15:00 80 11/19/16 15:00 80 26 103/51 95 11/19/16 14:00 80 11/19/16 14:00 80 21 107/51 98 11/19/16 13:00 80 19 107/55 98 11/19/16 12:00 98.7 80 20 105/58 95 11/19/16 12:00 80 Objective Remarks General: pleasant male in no acute distress. Able to maintain good conversation with eye contact. Less jaundiced. Cardiac: RRR, paced.S1/S2 without murmurs, rubs or gallops. No peripheral edema. Peripheral pulses 2+. No carotid bruits. Pulmonary: clear to auscultation bilaterally, no crackles, wheezing or rhonchi. Abdominal: Nondistended. BS present in all four quadrants. No tenderness with palpation. Negative Shanks's sign. Neurologic: Alert and oriented. A/P Assessment and Plan 1. GI bleed - patient appears stable with hemoglobin stable. No further episodes. - currently on Protonix - GI was consulted and he was seen. Outpatient follow up for endoscopy and colonoscopy. 2. Hypotension - corrected with hydration with IVF - most likely due to overmedication and possibly viral syndrome. - follow up with pier worker regarding Entresto dosage. Will continue other home medications. 3. Elevated LFTs - moderately improved - hepatitis panel still pending - No evidence of cholecystitis. HIDA scan WNL. 4. Possible renal mass - appears to be a simple cyst on ultrasound. Recommend outpatient follow up. - no further work up indicated 5. Acute renal failure - improved after hydration and holding his ACEI/ARB 6. Diabetes - will adjust home medications - continue diabetic diet 7. Thrombocytopenia - improved, no further bleeding - follow trend 8. Coagulopathy - On Coumadin at home - s/p vitamin K - resume Warfarin 8mg and monitor his INR 9. Cardiomyopathy - continue Bumex, Aldactone, Carvedilol, Metolazone - follow up outpatient with pier worker Attend to weakness. Follow up with PT. Follow up with home health if needed. Likely discharge in the am. Discussed with the patient and his and [employer]. Medical Decision Making Impression and Plan The exam, history, and the medical decision-making described in the above note were completed with the assistance of the mid-level provider. I reviewed and agree with the findings presented. I attest that I had a [id number] encounter with the patient on the same day, and personally performed and documented my assessment and findings in the medical record. Overall improved Likely dc in am transfer to med surg unit Dianna Osullivan Nov 20, 2016 12:00 Christine Posey MD Nov 20, 2016 13:18
[2016-11-20] MEDS ORDERED: ACETAMINOPHEN/HYDROcodone 325 MG/5 MG TAB PO PRN (13:00)
[2016-11-20] MEDS ORDERED: PANT40TA3 PO (14:08)
--- NOTE | 2016-11-20 14:08 | HHI.DCPOC ---
Discharge Care Plan Diagnosis: (1) LFTs abnormal (2) DM2 (diabetes mellitus, type 2) (3) GI bleed (4) ARF (acute renal failure) Goals to Promote Your Health * To prevent worsening of your condition and complications * To maintain your health at the optimal level Directions to Meet Your Goals Take your medications as prescribed Follow your dietary instruction Follow activity as directed Keep your appointments as scheduled Take your immunizations and boosters as scheduled If your symptoms worsen call your PCP, if no PCP go to Urgent Care Center or Emergency Room Smoking is Dangerous to Your Health. Avoid second hand smoke Call the 24-hour hour crisis hotline for domestic abuse at Christine Posey MD Nov 20, 2016 14:08
[2016-11-20 15:02] LABS: INTERNATIONAL NORMALIZED RATIO 1.3 RATIO; PROTHROMBIN TIME - PATIENT 14.2 SEC (9.8-11.6)
[2016-11-20] MEDS ORDERED: WARFARIN SOD 4 MG TAB PO ONE (16:00)
--- NOTE | 2016-11-20 17:02 | HHI.GIFU ---
Subjective Remarks Pt resting in bed, in no apparent distress, visiting with . Denies abd pain , n/v, bleeding. Objective Vitals I&O Vital Signs Date Time Temp Pulse Resp B/P Pulse Ox O2 Delivery O2 Flow Rate FiO2 11/20/16 16:00 80 17 94 11/20/16 15:00 80 23 96 11/20/16 14:00 80 20 93 11/20/16 13:00 80 26 96 11/20/16 13:00 80 26 96 11/20/16 12:39 80 9 101/51 93 11/20/16 12:00 98.2 11/20/16 10:34 80 11/20/16 10:00 80 11/20/16 09:02 80 21 132/66 97 11/20/16 08:02 82 25 123/65 96 11/20/16 08:00 80 11/20/16 08:00 98.1 11/20/16 06:13 130/60 11/20/16 06:00 80 11/20/16 05:02 80 25 122/65 97 11/20/16 04:02 99.8 80 24 121/62 97 11/20/16 04:00 80 11/20/16 03:02 80 21 137/68 94 11/20/16 02:02 80 22 140/72 94 11/20/16 02:00 82 11/20/16 01:02 80 20 143/67 93 11/20/16 00:02 98.4 80 24 119/62 95 11/20/16 00:00 80 11/19/16 23:02 80 27 118/52 95 11/19/16 22:02 80 17 129/67 95 11/19/16 22:00 80 11/19/16 21:02 80 23 116/61 11/19/16 20:02 98.6 80 22 117/53 93 11/19/16 20:00 80 11/19/16 20:00 95 Nasal Cannula 2.00 11/19/16 19:09 80 30 106/54 96 11/19/16 18:00 80 11/19/16 17:00 80 I/O 11/19/16 11/19/16 11/19/16 11/20/16 11/20/16 11/20/16 07:00 15:00 23:00 07:00 15:00 23:00 Intake Total 880 ml 1591 ml 412 ml Output Total 800 ml 1550 ml 1300 ml 600 ml Balance 880 ml 791 ml -1138 ml -1300 ml -600 ml Intake Oral 420 ml IV Total 880 ml 1171 ml 412 ml Output Urine Total 800 ml 1550 ml 1300 ml 600 ml # Voids 1 4 # Bowel Movements 1 1 Laboratory Laboratory Tests Test 11/19/16 11/20/16 11/20/16 21:48 05:46 14:31 Urine Color YELLOW Urine Turbidity CLOUDY Urine pH 5.5 Urine Specific [place] 1.015 Urine Protein TRACE Urine Glucose (UA) NEG Urine Ketones NEG Urine Occult Blood LARGE Urine Nitrite NEG Urine Bilirubin SMALL Urine Leukocyte Esterase NEG Urine RBC INNUM Urine WBC 3-5 Urine Squamous Epithelial 0-5 Cells Microscopic Urinalysis Comment CULT NOT INDICATED White Blood Count 5.5 Red Blood Count 4.45 Hemoglobin 13.3 Hematocrit 39.4 Mean Corpuscular Volume 88.6 Mean Corpuscular Hemoglobin 29.9 Mean Corpuscular Hemoglobin 33.7 Concent Red Cell Distribution Width 15.3 Platelet Count 108 Mean Platelet Volume 8.1 Neutrophils (%) (Auto) 64.6 Lymphocytes (%) (Auto) 21.4 Monocytes (%) (Auto) 13.1 Eosinophils (%) (Auto) 0.6 Basophils (%) (Auto) 0.3 Neutrophils # (Auto) 3.6 Lymphocytes # (Auto) 1.2 Monocytes # (Auto) 0.7 Eosinophils # (Auto) 0.0 Basophils # (Auto) 0.0 CBC Comment DIFF FINAL Differential Comment Prothrombin Time 16.8 14.2 Prothromb Time International 1.5 1.3 Ratio Sodium Level 137 Potassium Level 3.7 Chloride Level 100 Carbon Dioxide Level 28.6 Anion Gap 8 Blood Urea Nitrogen 29 Creatinine 1.20 Estimat Glomerular Filtration 58 Rate Random Glucose 154 Calcium Level 8.0 Total Bilirubin 1.4 Aspartate Amino Transf 49 (AST/SGOT) Alanine Aminotransferase 137 (ALT/SGPT) Alkaline Phosphatase 172 Total Protein 6.4 Albumin 2.5 Imaging Last Impressions Hepatobiliary Scan Nuclear Medicine 11/20/16 0000 Signed Impressions: Service Date/Time: Sunday, November 20, 2016 09:58 - CONCLUSION: Activity is documented within the gallbladder which excludes cystic duct obstruction. David Mcclendon MD Abdomen Ultrasound 11/19/16 0000 Signed Impressions: Service Date/Time: Saturday, November 19, 2016 19:25 - CONCLUSION: 1. Stone in the dependent portion the gallbladder. There is some mild thickening of the gallbladder wall. The gallbladder is somewhat contracted. There is no para cholecystic fluid. 2. 1.1 x 1.1 x 0.3 cm stone within the collecting system of the right kidney. 3. 2 small simple cysts identified within the left kidney. Jose Martin Foote MD Chest X-Ray 11/18/16 1515 Signed Impressions: Service Date/Time: November 15:35 - CONCLUSION: 1. Stable cardiomegaly with stable dual-lead AICD device. 2. No acute abnormality or significant interval change. Umesh Santos MD Head CT 11/18/16 0000 Signed Impressions: Service Date/Time: November 16:45 - CONCLUSION: 1. No acute intercranial abnormality is identified. Jose Martin Foote MD Abdomen/Pelvis CT 11/18/16 0000 Signed Impressions: Service Date/Time: November 16:49 - CONCLUSION: 1. 3.8 x 4.3 cm mass-like lesion within the midpole of the left kidney. MRI or CTA of the abdomen with contrast would be helpful for further characterization of this lesion to determine if this represents a complex cyst, solid mass or prominent column of Martin. If this represents a solid mass, renal cell carcinoma should be considered most likely in a patient of this age. 2. Uncomplicated colonic diverticulosis. 3. Thick-walled gallbladder with mild pericholecystic fluid raising the possibility of acute cholecystitis. A hepatobiliary scan may be helpful to confirm cystic duct obstruction if clinically indicated. 4. Cholelithiasis. 5. Calcified nonobstructing bilateral renal calculi. 6. Enlarged prostate. 7. Cardiomegaly. 8. Degenerative changes and scoliosis of the thoracolumbar spine. 9. Subcutaneous/intramuscular lipoma within the inferior aspect of the right axilla measuring approximately 6.3 cm in size. Nando Dyer MD Physical Exam HEENT: PERRL; normocephalic; atraumatic; no icterus CHEST: CTA CARDIAC: RRR ABDOMEN: Soft, obese, nontender; no hepatosplenomegaly; bowel sounds are present in all four quadrants. EXTREMITIES: No clubbing, cyanosis, or edema. SKIN: numerous brown fleshy growths face and chest; no rash; no jaundice. COAT PADDER: No focal deficits; alert and oriented times three. Assessment and Plan Plan ASSESSMENT - elevated LFTs - trending down. HIDA neg. CHF vs hepatitis? cholelithiasis. US 11-19-16--> stone dependent portion gallbladder, mild thickening gallbladder wall, gallbladder somewhat contracted, no paracholecystic fluid. CT 11-18-16 --> mass like lesion left kidney, uncomplicated colonic diverticulosis, thick walled gallbladder with mild pericholecystic fluid raising poss acute cholecystitis. hep panel pending - n/v, diarrhea - improving. tolerating diet ?hematemesis, reportedly dark brown. gastritis vs PUD.. Hx PUD PLAN - monitor LFTs - EGD/colonoscopy inpt vs outpt - CHARO - supportive care - await hep panel This pt seen by myself and Dr Lombardi and this note is written on his behalf. Radha Dukes Nov 20, 2016 17:02
[2016-11-20] MEDS: SODIUM CHLOR 0.9% 1000 ML INJ 1,000 ML IV SCH (17:33)
[2016-11-20] MEDS: INSULIN HUMAN NPH/R 70/30 1,000 UNITS/10 ML VIAL SQ SCH (20:39)
[2016-11-21] VITALS: BP 148/70; PULSE 82; RESP 25; TEMP 98.7; O2SAT 98
[2016-11-21 04:00] VITALS: BP 117/62; PULSE 73; RESP 27; TEMP 98.5; O2SAT 97
[2016-11-21 06:20] LABS: CHLORIDE 97 MEQ/L (98-107); POTASSIUM 3.6 MEQ/L (3.5-5.1); SODIUM (NA) 137 MEQ/L (136-145)
[2016-11-21 06:23] LABS: ANION GAP 8 MEQ/L (5-15); BICARBONATE 32.2 MEQ/L (21.0-32.0)
[2016-11-21 06:24] LABS: BLOOD UREA NITROGEN 25 MG/DL (7-18)
[2016-11-21 06:26] LABS: ALT (GPT) 112 U/L (12-78)
[2016-11-21 06:27] LABS: AST (GOT) 48 U/L (15-37); GLOMERULAR FILTRATION RATE 58 ML/MIN (>89)
[2016-11-21 06:28] LABS: TOTAL BILIRUBIN ADULT 1.1 MG/DL (0.2-1.0)
[2016-11-21 06:29] LABS: ALKALINE PHOSPHATASE 195 U/L (45-117)
[2016-11-21] MEDS: INSULIN ASPART SUPPLEMENTAL SCALE SQ SCH (06:42)
[2016-11-21 07:00] VITALS: PULSE 80; RESP 18; O2SAT 96
[2016-11-21 07:22] VITALS: BP 101/51; PULSE 80; RESP 28; O2SAT 96
[2016-11-21 08:00] VITALS: PULSE 78; PULSE 82; RESP 17; TEMP 98.4; O2SAT 93
--- NOTE | 2016-11-21 08:46 | HHI.DCPOC ---
Discharge Care Plan Diagnosis: (1) DM2 (diabetes mellitus, type 2) (2) LFTs abnormal (3) Hypotension (4) Thrombocytopenia Goals to Promote Your Health * To prevent worsening of your condition and complications * To maintain your health at the optimal level Directions to Meet Your Goals Take your medications as prescribed Follow your dietary instruction Follow activity as directed Keep your appointments as scheduled Take your immunizations and boosters as scheduled If your symptoms worsen call your PCP, if no PCP go to Urgent Care Center or Emergency Room Smoking is Dangerous to Your Health. Avoid second hand smoke Call the 24-hour hour crisis hotline for domestic abuse at Christine Posey MD Nov 21, 2016 08:45
--- NOTE | 2016-11-21 08:48 | HHI.DS ---
Discharge Summary Admission Date Nov 18, 2016 at 18:25 Discharge Date: Nov 21, 2016 Admitting Diagnosis DEHYDRATION, GI BLEED, JAUNDICE (1) GI bleed ICD Code: K92.2 (2) Dehydration ICD Code: E86.0 (3) Cardiomyopathy ICD Code: I42.9 (4) Thrombocytopenia ICD Code: D69.6 (5) Hypotension ICD Code: I95.9 (6) LFTs abnormal ICD Code: R79.89 (7) ARF (acute renal failure) ICD Code: N17.9 (8) Renal mass ICD Code: N28.89 (9) Jaundice ICD Code: R17 (10) DM2 (diabetes mellitus, type 2) ICD Code: E11.9 Procedures none Brief History - From Admission Patient is a 86-year-old gentleman with a history of cardiomyopathy and a known EF of 30% status post AICD/pacer we will came to the emergency room yesterday with complaint of malaise and weakness for about 3 days. He had one day of vomiting brown emesis which she was concerned with blood. He did come to the emergency room for further evaluation of these issues. His reported that he had turned "yellow" and he admits he had been eating poorly over the last few days. Recently his cardiac medication (Entresto) had been doubled by his housekeeper cleaning cooking and he continue to take his medicines despite feeling poorly. He notes no new pain other than his chronic back pain for which she has been taking acetaminophen. He has not had any fevers or chills. On his arrival to the emergency room he was quite hypotensive and orthostatic. The patient was given a minimal IV fluids and admitted to the ICU for further evaluation. He was given continuous IV hydration overnight and improved somewhat. He still feels weak but improved from his initial complaint. There is been no more emesis. He did have Hemoccult-positive stools on exam. His hemoglobin has remained stable CBC/BMP: 11/20/16 0546 11/21/16 0550 Significant Findings Laboratory Tests Test 11/18/16 11/18/16 11/19/16 11/19/16 15:50 18:26 04:35 13:20 Platelet Count 132 TH/MM3 102 TH/MM3 (150-450) (150-450) Neutrophils (%) (Auto) 76.7 % 78.2 % (16.0-70.0) (16.0-70.0) Prothrombin Time 39.6 SEC 46.6 SEC (9.8-11.6) (9.8-11.6) Activated Partial 33.6 SEC Thromboplast Time (24.3-30.1) Blood Urea Nitrogen 36 MG/DL (7-18) 33 MG/DL (7-18) Creatinine 1.90 MG/DL 1.50 MG/DL (0.60-1.30) (0.60-1.30) Estimat Glomerular Filtration 34 ML/MIN (>89) 45 ML/MIN (>89) Rate Random Glucose 140 MG/DL 108 MG/DL (74-106) (74-106) Total Bilirubin 4.3 MG/DL 2.5 MG/DL (0.2-1.0) (0.2-1.0) Aspartate Amino Transf 158 U/L (15-37) 95 U/L (15-37) (AST/SGOT) Alanine Aminotransferase 271 U/L (12-78) 205 U/L (12-78) (ALT/SGPT) Alkaline Phosphatase 120 U/L 132 U/L (45-117) (45-117) Albumin 2.7 GM/DL 2.6 GM/DL (3.4-5.0) (3.4-5.0) Urine Color TONA (YELLW/STRAW) Urine Ketones TRACE mg/dL (NEG) Urine Occult Blood TRACE (NEG) Urine Bilirubin MOD (NEG) Urine WBC 6-8 /hpf (0-5) Lymphocytes # (Auto) 0.8 TH/MM3 (1.0-4.8) Calcium Level 8.2 MG/DL (8.5-10.1) Gamma Glutamyl Transpeptidase 408 U/L (15-85) Acetaminophen Level LESS THAN 2.0 MCG/ML (10.0-30.0) Test 11/19/16 11/20/16 11/20/16 11/21/16 21:48 05:46 14:31 05:50 Urine Turbidity CLOUDY (CLEAR) Urine Occult Blood LARGE (NEG) Urine Bilirubin SMALL (NEG) Urine RBC INNUM /hpf (0-3) Red Blood Count 4.45 MIL/MM3 (4.50-5.90) Platelet Count 108 TH/MM3 (150-450) Monocytes (%) (Auto) 13.1 % (0.0-8.0) Prothrombin Time 16.8 SEC 14.2 SEC (9.8-11.6) (9.8-11.6) Blood Urea Nitrogen 29 MG/DL (7-18) 25 MG/DL (7-18) Estimat Glomerular Filtration 58 ML/MIN (>89) 58 ML/MIN (>89) Rate Random Glucose 154 MG/DL (74-106) Calcium Level 8.0 MG/DL (8.5-10.1) Total Bilirubin 1.4 MG/DL 1.1 MG/DL (0.2-1.0) (0.2-1.0) Aspartate Amino Transf 49 U/L (15-37) 48 U/L (15-37) (AST/SGOT) Alanine Aminotransferase 137 U/L (12-78) 112 U/L (12-78) (ALT/SGPT) Alkaline Phosphatase 172 U/L 195 U/L (45-117) (45-117) Albumin 2.5 GM/DL 2.6 GM/DL (3.4-5.0) (3.4-5.0) Chloride Level 97 MEQ/L (98-107) Carbon Dioxide Level 32.2 MEQ/L (21.0-32.0) Imaging Last Impressions Hepatobiliary Scan Nuclear Medicine 11/20/16 0000 Signed Impressions: Service Date/Time: Sunday, November 20, 2016 09:58 - CONCLUSION: Activity is documented within the gallbladder which excludes cystic duct obstruction. David Mcclendon MD Abdomen Ultrasound 11/19/16 0000 Signed Impressions: Service Date/Time: Saturday, November 19, 2016 19:25 - CONCLUSION: 1. Stone in the dependent portion the gallbladder. There is some mild thickening of the gallbladder wall. The gallbladder is somewhat contracted. There is no para cholecystic fluid. 2. 1.1 x 1.1 x 0.3 cm stone within the collecting system of the right kidney. 3. 2 small simple cysts identified within the left kidney. Jose Martin Foote MD Chest X-Ray 11/18/16 1515 Signed Impressions: Service Date/Time: November 15:35 - CONCLUSION: 1. Stable cardiomegaly with stable dual-lead AICD device. 2. No acute abnormality or significant interval change. Umesh Santos MD Head CT 11/18/16 0000 Signed Impressions: Service Date/Time: , November 18, 2016 16:45 - CONCLUSION: 1. No acute intercranial abnormality is identified. Jose Martin Foote MD Abdomen/Pelvis CT 11/18/16 0000 Signed Impressions: Service Date/Time: November 16:49 - CONCLUSION: 1. 3.8 x 4.3 cm mass-like lesion within the midpole of the left kidney. MRI or CTA of the abdomen with contrast would be helpful for further characterization of this lesion to determine if this represents a complex cyst, solid mass or prominent column of Martin. If this represents a solid mass, renal cell carcinoma should be considered most likely in a patient of this age. 2. Uncomplicated colonic diverticulosis. 3. Thick-walled gallbladder with mild pericholecystic fluid raising the possibility of acute cholecystitis. A hepatobiliary scan may be helpful to confirm cystic duct obstruction if clinically indicated. 4. Cholelithiasis. 5. Calcified nonobstructing bilateral renal calculi. 6. Enlarged prostate. 7. Cardiomegaly. 8. Degenerative changes and scoliosis of the thoracolumbar spine. 9. Subcutaneous/intramuscular lipoma within the inferior aspect of the right axilla measuring approximately 6.3 cm in size. Nando Dyer MD PE at Discharge GENERAL: This is a well-nourished, well-developed patient, in no apparent distress. CARDIOVASCULAR: Regular rate and rhythm without murmurs, gallops, or rubs. RESPIRATORY: Clear to auscultation. Breath sounds equal bilaterally. No wheezes , rales, or rhonchi. GASTROINTESTINAL: Abdomen soft, non-tender, nondistended. Normal active bowel sounds MUSCULOSKELETAL: Extremities without clubbing, cyanosis, or edema. NEURO: Alert & Oriented x4 to person, place, time, situation. Moves all ext x4 Pt update on day of discharge Patient seen today in follow-up for hypotension and elevated LFTs. Overall improved. No new complaints today. Discharge plans discussed with patient and with PRIMARY CARE NURSE Hospital Course This patient is a 86-year-old gentleman who came in with hypotension and sinus symptoms of liver and renal failure. Patient recently increase his blood pressure medications and had some episodes of nausea and vomiting. He was rehydrated and his LFTs and renal function improved. There was some concern for acute cholecystitis. With ultrasound and with hiatus scan this was thought less likely. Patient is recommended for further evaluation as an outpatient. His LFTs improved. Patient also had some concern for a renal mass which on ultrasound appeared to be a cyst. Patient will need to continue with surveillance is indicated. He has some thrombocytopenia which improved along with his blood pressure. He was seen by gastroenterology due to Hemoccult- positive stools and possible hematemesis. His symptoms resolved and his hematoma remained stable. asThis patient improves as an outpatient he will need follow-up for endoscopy. Pt Condition on Discharge: Good Discharge Disposition: Discharge Home Discharge Time: > 30 minutes Discharge Instructions DIET: Follow Instructions for: Heart Healthy Diet Activities you can perform: Regular-No Restrictions Follow up Referrals: PCP Follow-up - 1 Week New Medications: Pantoprazole (Pantoprazole) 40 Mg Tab 40 MG PO DAILY gi #14 TAB Continued Medications: Bumetanide (Bumetanide) 1 Mg Tab 1 MG PO BID #60 Ref 0 TAB Carvedilol (Carvedilol) 25 Mg Tab 12.5 MG PO BID #60 Ref 0 TAB Fish Oil-Cholecalciferol ([place]-3 Fish Oil/Vitamin) 1,000-1,000 Mg Cap 1 CAP PO DAILY Nutritional Supplement Ref 0 CAP Hydrocodone-Acetaminophen ([place]) 5-325 mg Tab 1 TAB PO Q6H PRN PAIN Ref 0 TAB Insulin Human Isophane-Regular 70-30 Inj (Novolin 70-30 Inj) 1,000 Unit/10 Ml Vial 55 UNITS SQ DIRECTED Blood Sugar Management Ref 0 ML Menthol-Methyl Salicylate Topical (Goodsense Muscle Rub Topical) 8-30 % Cream Metformin (Metformin) 1,000 Mg Tab 1000 MG PO BIDPC With meals Blood Sugar Management #60 Ref 0 TAB Metolazone (Metolazone) 5 Mg Tab 5 MG PO DAILY #30 Ref 0 TAB Spironolactone (Aldactone) 25 Mg Tab 25 MG PO DAILY #30 Ref 0 TAB Warfarin (Warfarin) 2 Mg Tab 10 MG PO DAILY m,w,f,sat Blood Clot Prevention #30 Ref 0 TAB Warfarin (Warfarin) 2 Mg Tab 8 MG PO DAILY tths Blood Clot Prevention #30 Ref 0 TAB Discontinued Medications: Sacubitril-Valsartan (Entresto) 97-103 Mg Tab 1 TAB PO DAILY Heart Failure #30 Ref 0 TAB Simvastatin (Zocor) 20 Mg Tab 20 MG PO HS Cholesterol Management #30 Ref 0 TAB Christine Posey MD Nov 21, 2016 08:48
[2016-11-21] MEDS: SODIUM CHLOR 0.9% 1000 ML INJ 1,000 ML IV SCH (08:57)
[2016-11-21] MEDS: DOCUSATE SODIUM 50 MG/SENNA 8.6 MG TAB PO SCH (09:00)
[2016-11-21] MEDS: SODIUM CHLORIDE 0.9% FLUSH 10 ML FLUSH IV FLUSH SCH (09:00)
[2016-11-21] MEDS: CARVEDILOL 12.5 MG TAB PO SCH (09:06)
[2016-11-21] MEDS: BUMETANIDE 1 MG TAB PO SCH (09:06)
[2016-11-21] MEDS: SPIRONOLACTONE 25 MG TAB PO SCH (09:06)
[2016-11-21] MEDS: PANTOPRAZOLE SOD 40 MG DELAYED RELEASE TAB PO SCH (09:06)
[2016-11-21] MEDS: METOLAZONE 5 MG TAB PO SCH (09:07)
[2016-11-21] MEDS: INSULIN HUMAN NPH/R 70/30 1,000 UNITS/10 ML VIAL SQ SCH (09:10)
== END 2016-11-21 09:50 | disposition home or self-care (01) | DRG 378 ==
LOC: PHED 14:28 → PHEDA 18:25 → PHICU 20:30
PROVIDERS: ADMIT Hospitalist; ATTEND Hospitalist
PROC: 0T9B70Z Drainage of Bladder with Drainage Device, Via Natural or Artificial Opening (ICD-10-PCS; principal; 2016-11-19)
DX: K92.2 Gastrointestinal hemorrhage, unspecified (principal); I42.9 Cardiomyopathy, unspecified; N17.9 Acute kidney failure, unspecified; D69.6 Thrombocytopenia, unspecified; R17 Unspecified jaundice; I48.91 Unspecified atrial fibrillation; I50.9 Heart failure, unspecified; I11.0 Hypertensive heart disease with heart failure; E86.0 Dehydration; E11.9 Type 2 diabetes mellitus without complications; N28.1 Cyst of kidney, acquired; E78.00 Pure hypercholesterolemia, unspecified; G47.30 Sleep apnea, unspecified; H91.90 Unspecified hearing loss, unspecified ear; R47.81 Slurred speech; K57.30 Diverticulosis of large intestine without perforation or abscess without bleeding; I34.0 Nonrheumatic mitral (valve) insufficiency; I25.10 Atherosclerotic heart disease of native coronary artery without angina pectoris; I25.2 Old myocardial infarction; Z88.5 Allergy status to narcotic agent; Z79.84 Long term (current) use of oral hypoglycemic drugs; R79.89 Other specified abnormal findings of blood chemistry; Z95.810 Presence of automatic (implantable) cardiac defibrillator; G89.29 Other chronic pain; M54.9 Dorsalgia, unspecified; I95.1 Orthostatic hypotension; K80.20 Calculus of gallbladder without cholecystitis without obstruction; Z87.11 Personal history of peptic ulcer disease; Z79.01 Long term (current) use of anticoagulants
CPT/HCPCS: 70450; 71010; 74176; 76700; 78226; 80053; 80074; 80307; 81001; 82550; 82948; 82977; 83880; 84484; 85014; 85018; 85025; 85610; 85730; 86850; 86900; 86901; 93005; 96365; 96375; A9537; C9113; J1815; J2405; J7030